=== PATIENT | female | born 1950 | race Two or more races ===

== ENCOUNTER 2016-11-10 10:15 | Outpatient (CLI) | payer MEDICARE, MEDICAID ==
[~2016-11-10 10:15] MED LIST: ALEN70TA45 PO; ALPR0.25 PO; ASCO500T9 PO; BENA20TA2 PO; CALC650T29 PO; CARV12.52 PO; DIPH25CA83 PO; FERR325T28 PO; FOLI1TAB16 PO; LEVO100T PO; METF500T4 PO; OMEP20CA10 PO; TRAM50TA2 PO
== END 2016-11-10 23:59 | disposition home health service (06) ==
LOC: WOU 10:15
PROVIDERS: ATTEND Podiatrist Foot & Ankle Surgery
DX: I87.2 Venous insufficiency (chronic) (peripheral) (principal); E11.52 Type 2 diabetes mellitus with diabetic peripheral angiopathy with gangrene; L97.322 Non-pressure chronic ulcer of left ankle with fat layer exposed; L97.829 Non-pressure chronic ulcer of other part of left lower leg with unspecified severity; L03.116 Cellulitis of left lower limb; B96.5 Pseudomonas (aeruginosa) (mallei) (pseudomallei) as the cause of diseases classified elsewhere; I70.222 Atherosclerosis of native arteries of extremities with rest pain, left leg; Z86.718 Personal history of other venous thrombosis and embolism; M21.172 Varus deformity, not elsewhere classified, left ankle; S82.892S Other fracture of left lower leg, sequela; X58.XXXS Exposure to other specified factors, sequela; Z85.810 Personal history of malignant neoplasm of tongue; Z92.21 Personal history of antineoplastic chemotherapy
CPT/HCPCS: 11042; 93925-TC; 93926-TC; A6402; A6452

== ENCOUNTER 2016-11-24 10:35 | Outpatient (CLI) | payer MEDICARE, MEDICAID | END 2016-11-24 23:59 | disposition home health service (06) | LOC: WOU 10:35 | PROVIDERS: ATTEND Podiatrist Foot & Ankle Surgery | DX: I87.2 Venous insufficiency (chronic) (peripheral) (principal); L97.322 Non-pressure chronic ulcer of left ankle with fat layer exposed; L97.821 Non-pressure chronic ulcer of other part of left lower leg limited to breakdown of skin; E66.9 Obesity, unspecified; Z68.32 Body mass index [BMI] 32.0-32.9, adult; Z86.718 Personal history of other venous thrombosis and embolism; Z85.810 Personal history of malignant neoplasm of tongue; Z92.21 Personal history of antineoplastic chemotherapy; Z92.3 Personal history of irradiation; M21.172 Varus deformity, not elsewhere classified, left ankle; I10 Essential (primary) hypertension | CPT/HCPCS: 11042; 11043; A6253; A6402; A6452 ==

== ENCOUNTER 2016-12-01 10:40 | Outpatient (CLI) | payer MEDICARE, MEDICAID | END 2016-12-01 23:59 | disposition home health service (06) | LOC: WOU 10:40 | PROVIDERS: ATTEND Podiatrist Foot & Ankle Surgery | DX: I87.2 Venous insufficiency (chronic) (peripheral) (principal); L97.322 Non-pressure chronic ulcer of left ankle with fat layer exposed; E66.9 Obesity, unspecified; Z68.32 Body mass index [BMI] 32.0-32.9, adult; Z86.718 Personal history of other venous thrombosis and embolism; Z85.810 Personal history of malignant neoplasm of tongue; Z92.21 Personal history of antineoplastic chemotherapy; Z92.3 Personal history of irradiation; M21.172 Varus deformity, not elsewhere classified, left ankle; E11.52 Type 2 diabetes mellitus with diabetic peripheral angiopathy with gangrene; I10 Essential (primary) hypertension | CPT/HCPCS: 11042; 11045; A6253; A6402; A6452 ==

== ENCOUNTER 2016-12-22 12:55 | Outpatient (CLI) | payer MEDICARE, MEDICAID | END 2016-12-22 23:59 | disposition home health service (06) | LOC: VASLAB 12:55 | PROVIDERS: ATTEND Surgery Vascular Surgery | DX: E11.51 Type 2 diabetes mellitus with diabetic peripheral angiopathy without gangrene (principal); I87.2 Venous insufficiency (chronic) (peripheral); I70.209 Unspecified atherosclerosis of native arteries of extremities, unspecified extremity; L97.321 Non-pressure chronic ulcer of left ankle limited to breakdown of skin; L97.821 Non-pressure chronic ulcer of other part of left lower leg limited to breakdown of skin | CPT/HCPCS: A6253; A6402; A6452; G0463 ==

== ENCOUNTER 2017-01-08 09:08 | Outpatient (CLI) | payer MEDICARE, MEDICAID | END 2017-01-08 23:59 | disposition home health service (06) | LOC: WOU 09:08 | PROVIDERS: ATTEND Podiatrist Foot & Ankle Surgery | DX: I87.2 Venous insufficiency (chronic) (peripheral) (principal); L97.322 Non-pressure chronic ulcer of left ankle with fat layer exposed; Z86.718 Personal history of other venous thrombosis and embolism; E11.9 Type 2 diabetes mellitus without complications; E66.9 Obesity, unspecified; Z68.32 Body mass index [BMI] 32.0-32.9, adult; M21.172 Varus deformity, not elsewhere classified, left ankle; S82.892S Other fracture of left lower leg, sequela; X58.XXXS Exposure to other specified factors, sequela; L84 Corns and callosities | CPT/HCPCS: 11042; 11045; A6253; A6402; A6452 ==

== ENCOUNTER 2017-02-02 14:14 | Outpatient (CLI) | payer MEDICARE, MEDICAID ==
[2017-02-02] MEDS ORDERED: ASPI-991 PO (16:26)
[2017-02-02] MEDS ORDERED: METF10002 PO (16:26)
[2017-02-02] MEDS ORDERED: PILO5TAB PO (16:26)
== END 2017-02-02 23:59 | disposition home health service (06) ==
LOC: WOU 14:14
PROVIDERS: ATTEND Podiatrist Foot & Ankle Surgery
DX: L03.116 Cellulitis of left lower limb (principal); I87.2 Venous insufficiency (chronic) (peripheral); E11.622 Type 2 diabetes mellitus with other skin ulcer; L97.321 Non-pressure chronic ulcer of left ankle limited to breakdown of skin; L97.821 Non-pressure chronic ulcer of other part of left lower leg limited to breakdown of skin; Z86.718 Personal history of other venous thrombosis and embolism; Z85.79 Personal history of other malignant neoplasms of lymphoid, hematopoietic and related tissues; Z92.21 Personal history of antineoplastic chemotherapy; Z92.3 Personal history of irradiation; M21.172 Varus deformity, not elsewhere classified, left ankle
CPT/HCPCS: A6402 ×2; G0463

== ENCOUNTER 2017-02-02 15:41 | Inpatient (IN) | payer MEDICARE, MEDICAID ==
[~2017-02-02] VITALS: Ht 165.1 cm; Wt 85.3 kg
--- NOTE | 2017-02-02 15:44 | NUR ---
PT SENT BY DR DUNHAM FROM [facility] TO BE ADMITTED FOR LLE CELLULITIS. PT ALERT OIRENTED MAORI SPEAKING. CAME IN VIA WHEELCHAIR. PATIENT CAN AMBULATE AND TRANSFER. PLACED ON MONITOR. VSS. AWAITING MD ORDER.
[2017-02-02] MEDS ORDERED: VANCOMYCIN 1 GM in IV D5W 250 ML IV ONE (16:00)
[2017-02-02] MEDS ORDERED: IV NS 0.9% 1,000 ML BAG IV ONE (16:00)
--- NOTE | 2017-02-02 16:00 | NUR ---
RAC #20 IV ACCESS PATENT AND BLOOD SAMPLE COLLECTED SENT TO LAB
[2017-02-02] MEDS ORDERED: IV SET PRIMARY PUMP SET 1 EA INFUS.SET MC ONE (16:02)
[2017-02-02] MEDS ORDERED: IV NS 0.9% 1,000 ML ONE (16:02)
[2017-02-02 16:05] LABS: BASOPHILS # (AUTO) 0.1 /CMM (0.0-0.2); BASOPHILS % (AUTO) 0.5 % (0.0-2.0); EOSINOPHILS # (AUTO) 0.2 /CMM (0.0-0.7); HEMATOCRIT 36 % (33-45); HEMOGLOBIN 11.8 g/dL (11.5-14.8); LYMPHOCYTES # (AUTO) 1.9 /CMM (0.8-4.8); LYMPHOCYTES % (AUTO) 17.5 % (20.0-44.0); MEAN CORPUSCULAR HEMOGLOBIN 28 PG (26.0-33.0); MEAN CORPUSCULAR HGB CONC 33 g/dl (31.0-36.0); MEAN CORPUSCULAR VOLUME 87 fL (82-100); MONOCYTES # (AUTO) 1.1 /CMM (0.1-1.30); MONOCYTES % (AUTO) 10.3 % (2.0-12.0); NEUTROPHILS # (AUTO) 7.7 /CMM (1.8-8.9); NEUTROPHILS % (AUTO) 69.7 % (43.0-81.0); PLATELET COUNT (AUTO) 371 /CMM (150-450); RDW COEFFICIENT OF VARIATION 12.6 (11.5-15.0); RED BLOOD CELL COUNT(AUTO) 4.18 MIL/uL (4.0-5.2)
--- NOTE | 2017-02-02 16:08 | NUR ---
CALLED NURSING SUP. FOR MS BED
--- NOTE | 2017-02-02 16:10 | NUR ---
WOUND CARE DONE ON LEFT LOWER EXT
[2017-02-02 16:19] LABS: INR 0.97 (0.87-1.13); PROTHROMBIN TIME 10.1 SECS (9.5-12.7)
[2017-02-02 16:20] LABS: CALCIUM, SERUM 8.6 mg/dL (8.5-10.1); CREATININE 0.7 mg/dL (0.6-1.3); POTASSIUM 4.1 mmol/L (3.5-5.1)
[2017-02-02 16:26] LABS: BILIRUBIN,DIRECT 0.1 mg/dL (0.0-0.2); BILIRUBIN,TOTAL 0.3 mg/dL (0.2-1.0); TOTAL PROTEIN, SERUM 8.1 g/dL (6.4-8.2)
[2017-02-02] MEDS ORDERED: PILO5TAB PO (16:26)
[2017-02-02] MEDS ORDERED: ASPI-991 PO (16:26)
[2017-02-02] MEDS ORDERED: METF10002 PO (16:26)
[2017-02-02 16:27] LABS: LACTIC ACID 1.2 mmol/L (0.4-2.0)
--- NOTE | 2017-02-02 17:04 | NUR ---
GAVE REPORT [facility] ROOM 113. DR GATICA SAW PT. PT TRANSFER TO [facility] VIA WHEELCHAIR.
[2017-02-02 17:15] VITALS: BP 128/49
[2017-02-02] MEDS ORDERED: Z GUARD REMEDY 2 OZ OINT TP PRN (17:30)
[2017-02-02] MEDS ORDERED: HYDROCODONE/APAP 5/325MG 1 EACH TABLET PO PRN (17:30)
[2017-02-02] MEDS ORDERED: ONDANSETRON HCL/PF 4 MG/2 ML VIAL IVP PRN (17:30)
[2017-02-02] MEDS ORDERED: PANTOPRAZOLE 40 MG TABLET.DR PO SCH (17:30)
[2017-02-02] MEDS ORDERED: MAG HYDROX/AL HYDROX/SIMETH 30 ML UDC PO PRN (17:30)
[2017-02-02] MEDS ORDERED: TRAMADOL HCL 50 MG TABLET PO PRN (17:30)
[2017-02-02] MEDS ORDERED: ACETAMINOPHEN 325 MG TABLET PO PRN (17:30)
[2017-02-02] MEDS ORDERED: IV SET PRIMARY 1 EA INFUS.SET MC ONE (17:45)
[2017-02-02] MEDS ORDERED: PILOCARPINE HCL 5 MG TABLET PO SCH (18:00)
[2017-02-02] MEDS ORDERED: FEE PK DOSING 1 MIN EA MC ONE (18:09)
[2017-02-02] MEDS: VANCOMYCIN 1 GM in IV D5W 250 ML IV SCH (18:55)
--- NOTE | 2017-02-02 18:57 | NUR ---
RN NOTES: Called Dr. Henao referred to MD, patient has a record allergy to Acetaminophen, interviewed patient and said she is having dizziness if Tylenol is taken, as per MD to continue ordering Tylenol and [place] (not a true allergic rxn), pharmacist Jason informed and will verify medication. Referred to Dr. Henao, patient is known DM ok to order Blood sugar check ACHS and with mild Insulin Sliding Scale.
[2017-02-02] MEDS ORDERED: CEFTRIAXONE 1 G in IV D5W 50 ML IV SCH (19:00)
[2017-02-02] MEDS: CARVEDILOL 12.5 MG TABLET PO SCH (19:07)
[2017-02-02] MEDS: BENAZEPRIL HCL 20 MG TABLET PO SCH (19:08)
[2017-02-02] MEDS: FERROUS SULFATE (325 MG) 325 MG/TAB TABLET PO SCH (19:08)
[2017-02-02] MEDS: FOLIC ACID 1 MG TABLET PO SCH (19:08)
[2017-02-02] MEDS: ASPIRIN EC 81 MG TABLET.DR PO SCH (19:08)
--- NOTE | 2017-02-02 19:17 | NUR ---
RN INITIAL NOTES: 1715hrs Received patient from ER per rufino in stable condition, accompanied by ER staff. Alert and oriented x3, amharic speaking, translated by ROD Corona, all queries answered by patient. ON RA saturating well at 97%. Able to make needs known, Call lights placed within reached, verbalized understanding to press call light when in need of any assistance. With IV PLUG over right Antecubital G20, with IV Vancomycin infusing well. Needs attended. Left lower extremities wound assessed and photographic photos taken placed in the chart. No SOB, no LOC, respirations are even and unlabored, no acute distress noted. Dr. Henao aware of admission. Patient able to ambulate with assistance FWW, Fall precaution observed, bed low and locked. To endorse to next shift for continuity of care.
[2017-02-02] MEDS ORDERED: DEXTROSE 50%-WATER 50 ML DISP.SYRIN IV PRN (19:30)
--- NOTE | 2017-02-02 20:08 | NUR ---
MS1/RN RECEIVE PATIENT SLEEPING, APPEAR COMFORTABLE, BREATHING EVEN AND UNLABORED, NO SIGNS OF DISTRESS NOTED, CALL LIGHT IN REACH. WILL MONITOR.
[2017-02-02] MEDS ORDERED: SECONDARY IV SET 1 EA INFUS.SET MC ONE (20:14)
[2017-02-02 20:53] VITALS: BP 136/56
[2017-02-02] MEDS ORDERED: ZOLPIDEM TARTRATE 5 MG TABLET PO PRN (22:00)
[2017-02-02] MEDS ORDERED: MAGNESIUM HYDROXIDE 30 ML UDC PO PRN (22:00)
[2017-02-02] MEDS: BLOOD SUGAR DIAGNOSTIC 1 EACH STRIP IN SCH (22:00)
--- NOTE | 2017-02-03 02:13 | NUR ---
MS1/RN PATIENT IS SLEEPING AROUSABLE, APPEAR COMFORTABLE, NO SIGNS OF DISTRESS NOTED, CALL LIGHT IN REACH. WILL CONTINUE TO MONITOR.
[2017-02-03 04:00] VITALS: BP 112/46
--- NOTE | 2017-02-03 06:43 | NUR ---
MS1/RN AWAKE, COMFORTABLE, NO CHANGE IN CONDITION. ALL NEEDS ATTENDED AT THIS TIME. WILL CONTINUE TO MONITOR.
[2017-02-03] MEDS: VANCOMYCIN 1 GM in IV D5W 250 ML IV SCH ×2 (07:03→18:24)
[2017-02-03 07:06] LABS: BASOPHILS % (AUTO) 0.2 % (0.0-2.0); EOSINOPHILS # (AUTO) 0.1 /CMM (0.0-0.7); EOSINOPHILS % (AUTO) 0.7 % (0.0-6.0); HEMATOCRIT 32 % (33-45); HEMOGLOBIN 10.8 g/dL (11.5-14.8); LYMPHOCYTES # (AUTO) 1.6 /CMM (0.8-4.8); MEAN CORPUSCULAR HEMOGLOBIN 30 PG (26.0-33.0); MEAN CORPUSCULAR HGB CONC 34 g/dl (31.0-36.0); MEAN CORPUSCULAR VOLUME 86 fL (82-100); MONOCYTES # (AUTO) 1.6 /CMM (0.1-1.30); MONOCYTES % (AUTO) 11.8 % (2.0-12.0); NEUTROPHILS # (AUTO) 10.2 /CMM (1.8-8.9); NEUTROPHILS % (AUTO) 75.3 % (43.0-81.0); PLATELET COUNT (AUTO) 316 /CMM (150-450); RDW COEFFICIENT OF VARIATION 13.6 (11.5-15.0); RED BLOOD CELL COUNT(AUTO) 3.65 MIL/uL (4.0-5.2); WHITE BLOOD COUNT (AUTO) 13.6 K/uL (4.3-11.0)
[2017-02-03] MEDS: IV NS 0.9% 1,000 ML IV PRN (07:07)
--- NOTE | 2017-02-03 07:20 | NUR ---
MS RN NOTES RECEIVED PATIENT AOX4 CHILEAN SPEAKING , ABLE TO MAKE NEEDS KNOWN , NOT IN ACUTE DISTRESS , DENIES SOB AND DISCOMFORT AT THIS TIME , SPO2 OF 95% VIA RA , LEFT LEG AND HEEL WOUND DRESSING C/D/I , IV OF R AC # 20 PATENT AND INTACT , IVF OF NS @ 75ML/HR INFUSING WELL , ALL NEEDS ATTENDED , BED ON LOW AND LOCKED POSITION , SIDE RAILS X2 ,CALL LIGHT WITHIN REACH , WILL CONTINUE TO MONITOR .
[2017-02-03 07:31] LABS: ALBUMIN 2.4 g/dL (3.4-5.0); BILIRUBIN,TOTAL 0.5 mg/dL (0.2-1.0); CALCIUM, SERUM 7.7 mg/dL (8.5-10.1); CREATININE 0.6 mg/dL (0.6-1.3); MAGNESIUM 1.7 mg/dL (1.8-2.4); PHOSPHORUS 2.9 mg/dL (2.5-4.9); POTASSIUM 3.8 mmol/L (3.5-5.1); TOTAL PROTEIN, SERUM 6.9 g/dL (6.4-8.2)
--- NOTE | 2017-02-03 07:44 | NUR ---
MS RN NOTES BS OF 160MG/DL , PT REFUSES COVERAGE OF INSULIN , EXPLAINED THE RISK AND BENEFITS OF INSULIN WITH IRISH TRANSLATION OF LJ , PT VERBALIZED UNDERSTANDING STILL REFUSES .
[2017-02-03 08:00] VITALS: BP_SYST 106; BP_SYST 110; BP_DIAS 41
[2017-02-03] MEDS: METFORMIN 500 MG TABLET PO SCH ×2 (08:07→16:51)
[2017-02-03] MEDS: FERROUS SULFATE (325 MG) 325 MG/TAB TABLET PO SCH ×2 (08:07→16:51)
[2017-02-03] MEDS: ASPIRIN EC 81 MG TABLET.DR PO SCH (08:07)
[2017-02-03] MEDS: PANTOPRAZOLE 40 MG TABLET.DR PO SCH (08:07)
[2017-02-03] MEDS: CALCIUM CARBONATE 500 MG TAB.CHEW PO SCH (08:07)
[2017-02-03] MEDS: FOLIC ACID 1 MG TABLET PO SCH (08:07)
[2017-02-03] MEDS: LEVOTHYROXINE SODIUM 100 MCG TABLET PO SCH (08:07)
[2017-02-03] MEDS: BENAZEPRIL HCL 20 MG TABLET PO SCH (08:08)
[2017-02-03] MEDS: CARVEDILOL 12.5 MG TABLET PO SCH ×2 (08:08→16:34)
[2017-02-03] MEDS: BLOOD SUGAR DIAGNOSTIC 1 EACH STRIP IN SCH ×4 (08:08→22:00)
[2017-02-03] MEDS ORDERED: PILOCARPINE HCL 5 MG TABLET PO SCH (09:00)
--- NOTE | 2017-02-03 10:00 | NUR ---
MS RN NOTES CONSENT FOR LEFT FOOT AND LEG STAGE DEBRIDEMENT OBTAINED , TRANSLATED BY LJ VELASCO , PT VERBALIZED UNDERSTANDING AND AGREED WITH THE PROCEDURE .
[2017-02-03] MEDS ORDERED: MORPHINE SULFATE INJ 2 MG/ML DISP.SYRIN IV ONE (10:30)
--- NOTE | 2017-02-03 10:34 | NUR ---
WOUND CARE CONSULT: PT PRESENTS WITH LEFT LEG ULCERS, PRESENT ON ADMISSION. RECOMMENDATIONS MADE FOR SKIN PROTECTION. DR DUNHAM IN TO SEE PT AND WOUND CARE ORDERS RECEIVED. WILL SEE PRN. PT DENIES NEED FOR BACK/SACRAL SKIN ASSESSMENT AND IS CONTINENT AND INDEPENDENT WITH BED MOBILITY PER NURSING STAFF. MD IN AGREEMENT WITH PLAN OF CARE. BRITTANI SCORE IS 19. Addendum: 02/03/17 at 1036 by JIMBO JETER WNDNU Amended: Links added.
--- NOTE | 2017-02-03 10:35 | NUR ---
MS RN NOTES DR CRANDALL AT BEDSIDE PERFORMING LEFT LEG AND FOOT DEBRIDEMENT , WOUND CULTURE OBTAINED , WILL CONTINUE TO MONITOR
[2017-02-03] MEDS ORDERED: SECONDARY IV SET 1 EA INFUS.SET MC ONE ×2 (11:01→14:53)
[2017-02-03] MEDS: Magnesium 1GM/D5W 100ML PREMIX 100 ML IV SCH ×2 (11:06→13:09)
[2017-02-03] MEDS: GENTAMICIN 0.1% OINT 15 GM TUBE TP SCH (11:06)
[2017-02-03] MEDS: INSULIN REGULAR, HUMAN 100 UNIT/ML 3 ML VIAL SQ PRN ×2 (11:22→16:53)
[2017-02-03 16:00] VITALS: BP_SYST 96; BP_DIAS 34; BP_DIAS 64
[2017-02-03] MEDS: LACTOBACILLUS RHAMNOSUS GG 1 EACH CAP.SPRINK PO SCH (16:51)
[2017-02-03] MEDS: CEFTRIAXONE 1 G in IV D5W 50 ML IV SCH (17:00)
--- NOTE | 2017-02-03 18:34 | NUR ---
MS RN NOTES FOLLOWED UP IF SOMEBODY CAM BRING SALEGEN 5MG HOME MEDICATION , PER PT SHE DOESNT TAKE IT MUCH , SHE IS JUST TAKING IT IF SHE'S HAVING LOT OF SECRETIONS , CALLED [facility] PHARMACIST AWARE .
--- NOTE | 2017-02-03 18:54 | NUR ---
MS RN NOTES PATIENT STABLE AT THIS TIME , ABLE TO MAKE NEEDS KNOWN , NOT IN ACUTE DISTRESS , DENIES SOB AND DISCOMFORT AT THIS TIME , SPO2 OF 96% VIA RA , LEFT LEG AND HEEL WOUND DRESSING C/D/I , IV OF R AC # 20 PATENT AND INTACT , IVF OF NS @ 75ML/HR INFUSING WELL , ALL NEEDS ATTENDED , BED ON LOW AND LOCKED POSITION , SIDE RAILS X2 ,CALL LIGHT WITHIN REACH , REPORT GIVEN TO PM NURSE FOR CONTINUITY OF CARE
[2017-02-03 20:00] VITALS: BP_SYST 102; BP_DIAS 44; BP_DIAS 64
--- NOTE | 2017-02-03 20:00 | NUR ---
MS RN NOTES RECEIVED PTS ON BED AWAKE ALERT AND RESPONSIVE ABLE TO MAKE NEEDS KNOWN , PTS USES COMMODE , V/S STABLE AFEBRILE . PTS IS CANADIAN SPEAKING . ON IVF OF NS AT 75CC/HR TOLERATED WELL .ALL DUE MEDS GIVEN ORDERED. ALL NEEDS ATTENDED TO CALL LIGHT WITHIN REACH, KEPT PTS CLEAN DRY AND COMFORTABLE, WILL CONTINUE TO MONITOR PTS.
[2017-02-04] MEDS: INSULIN REGULAR, HUMAN 100 UNIT/ML 3 ML VIAL SQ PRN ×3 (00:25→21:33)
[2017-02-04] MEDS: IV NS 0.9% 1,000 ML IV PRN ×2 (03:17→20:43)
[2017-02-04 04:00] VITALS: BP 113/46
[2017-02-04] MEDS: BLOOD SUGAR DIAGNOSTIC 1 EACH STRIP IN SCH ×4 (06:45→21:35)
[2017-02-04] MEDS: VANCOMYCIN 1 GM in IV D5W 250 ML IV SCH (06:51)
[2017-02-04 07:06] LABS: BASOPHILS % (AUTO) 0.4 % (0.0-2.0); EOSINOPHILS # (AUTO) 0.3 /CMM (0.0-0.7); EOSINOPHILS % (AUTO) 3.4 % (0.0-6.0); HEMATOCRIT 30 % (33-45); HEMOGLOBIN 9.8 g/dL (11.5-14.8); LYMPHOCYTES # (AUTO) 2.1 /CMM (0.8-4.8); LYMPHOCYTES % (AUTO) 21.6 % (20.0-44.0); MEAN CORPUSCULAR HEMOGLOBIN 29 PG (26.0-33.0); MEAN CORPUSCULAR HGB CONC 33 g/dl (31.0-36.0); MEAN CORPUSCULAR VOLUME 87 fL (82-100); MONOCYTES # (AUTO) 1.1 /CMM (0.1-1.30); MONOCYTES % (AUTO) 11.7 % (2.0-12.0); NEUTROPHILS # (AUTO) 6.1 /CMM (1.8-8.9); NEUTROPHILS % (AUTO) 62.9 % (43.0-81.0); PLATELET COUNT (AUTO) 294 /CMM (150-450); RDW COEFFICIENT OF VARIATION 13.6 (11.5-15.0); WHITE BLOOD COUNT (AUTO) 9.6 K/uL (4.3-11.0)
--- NOTE | 2017-02-04 07:20 | NUR ---
MS RN NOTES BLOOD SUGAR FOR 730AM IS 93 - NO COVERAGE GIVEN PER SLIDING SCALE, PTS IS STABLE AFEBRILE NO SOB NO DISTRESS NOTED , ENDORSED TO TIM STANTON DAY SHIFT FOR CONTINUITY OF CARE.
[2017-02-04 07:48] LABS: CALCIUM, SERUM 7.4 mg/dL (8.5-10.1); CREATININE 0.5 mg/dL (0.6-1.3); POTASSIUM 3.6 mmol/L (3.5-5.1)
[2017-02-04 08:00] VITALS: BP 122/37
[2017-02-04] MEDS: METFORMIN 500 MG TABLET PO SCH ×3 (08:53→17:52)
[2017-02-04] MEDS: LEVOTHYROXINE SODIUM 100 MCG TABLET PO SCH (08:54)
[2017-02-04] MEDS: FOLIC ACID 1 MG TABLET PO SCH (08:54)
[2017-02-04] MEDS: ASPIRIN EC 81 MG TABLET.DR PO SCH (08:54)
[2017-02-04] MEDS: PANTOPRAZOLE 40 MG TABLET.DR PO SCH (08:54)
[2017-02-04] MEDS: FERROUS SULFATE (325 MG) 325 MG/TAB TABLET PO SCH ×2 (08:54→17:52)
[2017-02-04] MEDS: BENAZEPRIL HCL 20 MG TABLET PO SCH (08:54)
[2017-02-04] MEDS: LACTOBACILLUS RHAMNOSUS GG 1 EACH CAP.SPRINK PO SCH ×2 (08:54→17:52)
[2017-02-04] MEDS: CALCIUM CARBONATE 500 MG TAB.CHEW PO SCH (08:54)
[2017-02-04] MEDS: CARVEDILOL 12.5 MG TABLET PO SCH ×2 (08:56→17:52)
[2017-02-04] MEDS: GENTAMICIN 0.1% OINT 15 GM TUBE TP SCH (08:57)
[2017-02-04] MEDS: VANCOMYCIN 0.75 GM in IV D5W 250 ML IV SCH (14:27)
[2017-02-04 16:00] VITALS: BP 128/34
[2017-02-04] MEDS: CEFTRIAXONE 1 G in IV D5W 50 ML IV SCH (17:53)
[2017-02-04 20:00] VITALS: BP 142/58
--- NOTE | 2017-02-04 20:00 | NUR ---
MS RN NOTES RECEIVED PTS ON BED AWAKE ALERT AND RESPONSIVE , TRINIDADIAN SPEAKING , NO SOB NO DISTRESS NOTED , DENIES PAIN AT THIS TIME. ALL DUE MEDS GIVEN ORDERED , ALL NEEDS ATTENDED TOO CALL LIGHT WITHIN REACH, KEPT PTS CLEAN DRY AND COMFORTABLE .
--- NOTE | 2017-02-04 22:00 | NUR ---
MS RN NOTES BLOOD SUGAR FOR 10PM IS 125= NO COVERAGE GIVEN PER SLIDING SCALE.WILL CONTINUE TO MONITOR PTS.PTS IS COMFORTABLE IN BED SLEEPING.
[2017-02-05] MEDS: VANCOMYCIN 0.75 GM in IV D5W 250 ML IV SCH ×3 (02:32→17:37)
[2017-02-05 04:00] VITALS: BP 134/65
[2017-02-05] MEDS: BLOOD SUGAR DIAGNOSTIC 1 EACH STRIP IN SCH ×4 (06:25→21:18)
[2017-02-05] MEDS: INSULIN REGULAR, HUMAN 100 UNIT/ML 3 ML VIAL SQ PRN (06:26)
[2017-02-05 07:16] LABS: CALCIUM, SERUM 7.9 mg/dL (8.5-10.1); CREATININE 0.5 mg/dL (0.6-1.3); POTASSIUM 3.7 mmol/L (3.5-5.1)
--- NOTE | 2017-02-05 07:30 | NUR ---
RN NOTES RECEIVED PT RESTING ON BED AWAKE ALERT AND RESPONSIVE ABLE TO MAKE NEEDS KNOWN, SWISS SPEAKING. DENIES PAIN AT THIS TIME, DRESSING ON LOWER EXTREMITY DRY AND INTACT. PT USES COMMODE AT BEDSIDE. ON IVF OF NS AT 75CC/HR INFUSING ON R AC TOLERATED WELL. SAFETY MAINTAINED, ALL NEEDS ATTENDED TO CALL LIGHT WITHIN REACH, WILL CONTINUE TO MONITOR.
[2017-02-05 08:00] VITALS: BP 140/50
[2017-02-05] MEDS: METFORMIN 500 MG TABLET PO SCH ×2 (08:58→17:17)
[2017-02-05] MEDS: FERROUS SULFATE (325 MG) 325 MG/TAB TABLET PO SCH ×2 (08:58→17:17)
[2017-02-05] MEDS: LACTOBACILLUS RHAMNOSUS GG 1 EACH CAP.SPRINK PO SCH ×2 (08:58→17:17)
[2017-02-05] MEDS: CALCIUM CARBONATE 500 MG TAB.CHEW PO SCH (08:58)
[2017-02-05] MEDS: LEVOTHYROXINE SODIUM 100 MCG TABLET PO SCH (08:59)
[2017-02-05] MEDS: ASPIRIN EC 81 MG TABLET.DR PO SCH (08:59)
[2017-02-05] MEDS: PANTOPRAZOLE 40 MG TABLET.DR PO SCH (08:59)
[2017-02-05] MEDS: FOLIC ACID 1 MG TABLET PO SCH (08:59)
[2017-02-05] MEDS: CARVEDILOL 12.5 MG TABLET PO SCH ×2 (08:59→17:18)
[2017-02-05] MEDS: BENAZEPRIL HCL 20 MG TABLET PO SCH (08:59)
[2017-02-05] MEDS: GENTAMICIN 0.1% OINT 15 GM TUBE TP SCH (09:00)
[2017-02-05] MEDS: IV NS 0.9% 1,000 ML IV PRN (09:23)
--- NOTE | 2017-02-05 12:32 | NUR ---
RN NOTES BS 134MG/DL, PT REFUSED INSULIN COVERAGE. RISKS AND BENEFITS EXPLAINED. PT STILL REFUSED.
[2017-02-05 16:00] VITALS: BP 124/44
[2017-02-05] MEDS: CEFTRIAXONE 1 G in IV D5W 50 ML IV SCH (17:18)
[2017-02-05] MEDS ORDERED: ALENDRONATE 70 MG TABLET PO SCH (17:30)
[2017-02-05] MEDS: LEVOFLOXACIN (500MG) 500 MG TABLET PO SCH (19:51)
[2017-02-05] MEDS: CEFTAZIDIME 1 G in IV D5W 50 ML IV SCH (19:51)
[2017-02-05 20:00] VITALS: BP 143/52
[2017-02-05 20:02] VITALS: BP 143/52
--- NOTE | 2017-02-05 22:09 | NUR ---
RN:MS: PT REFUSED INSULIN ADMIN FOR HS. PT GIVEN RISKS AND BENEFITS OF INSULIN, PT STILL REFUSED.
[2017-02-06] MEDS: CEFTAZIDIME 1 G in IV D5W 50 ML IV SCH ×3 (03:04→17:10)
[2017-02-06 04:00] VITALS: BP 149/62
[2017-02-06] MEDS: BLOOD SUGAR DIAGNOSTIC 1 EACH STRIP IN SCH ×4 (06:27→23:01)
[2017-02-06 07:06] LABS: CALCIUM, SERUM 8.1 mg/dL (8.5-10.1); CREATININE 0.5 mg/dL (0.6-1.3); POTASSIUM 3.7 mmol/L (3.5-5.1)
--- NOTE | 2017-02-06 07:15 | NUR ---
RN MS INITIAL NOTE RECEIVED PT FROM PM NURSE, PT RESTING IN BED, A&O X3 ESTONIAN SPEAKING, AWAKE ORIENTED, ON RA SAT ABOVE 97%, RT HAND RUNNING IV NS @ 75 ML/HR, NO INFILTRATION, ALL NEEDS MET, ALL SAFETY MEASURES INITIATED, SIDE RAILS X2, BED LOW AND LOCKED, CALL LIGHT WITHIN REACH, WILL CONTINUE TO MONITOR.
[2017-02-06 08:00] VITALS: BP 148/70
[2017-02-06] MEDS: ASPIRIN EC 81 MG TABLET.DR PO SCH (08:09)
[2017-02-06] MEDS: CALCIUM CARBONATE 500 MG TAB.CHEW PO SCH (08:09)
[2017-02-06] MEDS: FERROUS SULFATE (325 MG) 325 MG/TAB TABLET PO SCH ×2 (08:09→17:07)
[2017-02-06] MEDS: LACTOBACILLUS RHAMNOSUS GG 1 EACH CAP.SPRINK PO SCH ×2 (08:10→17:08)
[2017-02-06] MEDS: BENAZEPRIL HCL 20 MG TABLET PO SCH (08:10)
[2017-02-06] MEDS: PANTOPRAZOLE 40 MG TABLET.DR PO SCH (08:10)
[2017-02-06] MEDS: METFORMIN 500 MG TABLET PO SCH ×2 (08:10→17:07)
[2017-02-06] MEDS: FOLIC ACID 1 MG TABLET PO SCH (08:10)
[2017-02-06] MEDS: LEVOTHYROXINE SODIUM 100 MCG TABLET PO SCH (08:10)
[2017-02-06] MEDS: CARVEDILOL 12.5 MG TABLET PO SCH ×2 (08:11→17:08)
[2017-02-06] MEDS: GENTAMICIN 0.1% OINT 15 GM TUBE TP SCH (08:12)
[2017-02-06] MEDS ORDERED: GENTAMICIN 0.1% OINT 15 GM TUBE TP SCH (09:00)
[2017-02-06] MEDS: IV NS 0.9% 1,000 ML IV PRN (12:00)
[2017-02-06 16:00] VITALS: BP 135/70
[2017-02-06] MEDS: LEVOFLOXACIN (500MG) 500 MG TABLET PO SCH (17:10)
--- NOTE | 2017-02-06 18:38 | NUR ---
RN MS TARANGO NOTES PT STABLE WITH NO ACUTE CHANGES, BED BATH PROVIDED, WILL ENDORSE TO PM NURSE.
--- NOTE | 2017-02-06 19:30 | NUR ---
MS RN INITIAL NOTE RECEIVED PT SITTING AT BEDSIDE. A/O X3 YAKUT SPEAKING AND ABLE TO MAKE NEEDS KNOWN. ON ROOM AIR AND SATING WELL. IV R HAND CLEAN AND INTACT WITH FLUIDS RUNNING. ALL SAFETY MEASURES IN PLACE. CALL LIGHT WITHIN EASY REACH AT ALL TIMES. WILL CONTINUE TO MONITOR.
[2017-02-06 20:00] VITALS: BP 147/74
[2017-02-07] MEDS ORDERED: IV SET PRIMARY PUMP SET 1 EA INFUS.SET MC ONE (01:47)
[2017-02-07] MEDS ORDERED: SECONDARY IV SET 1 EA INFUS.SET MC ONE (01:47)
[2017-02-07] MEDS: CEFTAZIDIME 1 G in IV D5W 50 ML IV SCH ×3 (02:02→18:05)
[2017-02-07] MEDS: IV NS 0.9% 1,000 ML IV PRN ×2 (02:02→17:11)
--- NOTE | 2017-02-07 06:30 | NUR ---
MS RN CLOSING NOTE PT REMAINED STABLE DURING SHIFT. WOUND TREATMENT DONE. ALL SAFETY MEASURES IN PLACE. CALL LIGHT WITHIN EASY REACH AT ALL TIMES. WILL ENDORSE TO NEXT SHIFT FOR SUZIE
[2017-02-07] MEDS: BLOOD SUGAR DIAGNOSTIC 1 EACH STRIP IN SCH ×4 (06:44→21:41)
[2017-02-07] MEDS: PANTOPRAZOLE 40 MG TABLET.DR PO SCH (06:44)
[2017-02-07] MEDS: LEVOTHYROXINE SODIUM 100 MCG TABLET PO SCH (06:44)
--- NOTE | 2017-02-07 07:10 | NUR ---
MS RN NOTES RECEIVED PATIENT IN BED AWAKE, A/O X3. LEFT LEG DRESSING IN PLACE, APPEARS COMFORTABLE IN BED, NO C/O PAIN AT THIS TIME. IV RIGHT HAND G22 PATENT AND INTACT, IV NS INFUSING AT 75ML/HR. CALL LIGHT WITHIN REACH. WILL CONT TO MONITOR.
[2017-02-07 07:28] LABS: CALCIUM, SERUM 8.2 mg/dL (8.5-10.1); CREATININE 0.6 mg/dL (0.6-1.3); POTASSIUM 3.8 mmol/L (3.5-5.1)
[2017-02-07 08:00] VITALS: BP 164/94
[2017-02-07] MEDS: BENAZEPRIL HCL 20 MG TABLET PO SCH (08:49)
[2017-02-07] MEDS: LACTOBACILLUS RHAMNOSUS GG 1 EACH CAP.SPRINK PO SCH ×2 (08:49→17:09)
[2017-02-07] MEDS: FOLIC ACID 1 MG TABLET PO SCH (08:50)
[2017-02-07] MEDS: METFORMIN 500 MG TABLET PO SCH ×2 (08:50→17:09)
[2017-02-07] MEDS: CARVEDILOL 12.5 MG TABLET PO SCH ×2 (08:50→17:09)
[2017-02-07] MEDS: FERROUS SULFATE (325 MG) 325 MG/TAB TABLET PO SCH ×2 (08:50→17:09)
[2017-02-07] MEDS: CALCIUM CARBONATE 500 MG TAB.CHEW PO SCH (08:50)
[2017-02-07] MEDS: ASPIRIN EC 81 MG TABLET.DR PO SCH (08:50)
[2017-02-07] MEDS: DAKINS QUARTER STRENGTH (0.125%) 480 ML BOTTLE TOP SCH (09:00)
[2017-02-07] MEDS: GENTAMICIN 0.1% OINT 15 GM TUBE TP SCH (10:23)
--- NOTE | 2017-02-07 11:22 | NUR ---
ERON DINERO. NOT AVAILABLE AT THIS TIME. CALLED PHARMACY SPOKE TO SEDA.
[2017-02-07] MEDS: INSULIN REGULAR, HUMAN 100 UNIT/ML 3 ML VIAL SQ PRN ×2 (12:04→17:21)
--- NOTE | 2017-02-07 12:07 | NUR ---
BS 107MG/DL. NO INSULIN COVERAGE.
[2017-02-07 16:00] VITALS: BP 147/68
--- NOTE | 2017-02-07 17:22 | NUR ---
BS 79MG/DL. NO INSULIN GIVEN PER COVERAGE.
[2017-02-07] MEDS: LEVOFLOXACIN (500MG) 500 MG TABLET PO SCH (18:09)
--- NOTE | 2017-02-07 18:39 | NUR ---
MS RN CLOSING NOTES PATIENT IN BED, NOT IN DISTRESS. LEFT LEG WOUND DRESSING CHANGED. BLOOD SUGAR MONITORED. ON ANTIBIOTIC WITH NO ADVERSE SIDE EFFECT, AFEBRILE. PATIENT HAD BOWEL MOVEMENT TODAY, MOD AMT. NO C/O CONSTIPATION. MADE COMFORTABLE IN BED, LLE ELEVATED WITH PILLOWS. NO C/O PAIN OR ANY DISCOMFORT. CALL LIGHT WITHIN REACH. PER DR. GATICA FOR DC PLANNING IN AM IF CLEARED BY PODIATRY. WILL ENDORSE TO PERSONAL DEVELOPMENT EDUCATOR RN FOR CONTINUITY OF CARE.
--- NOTE | 2017-02-07 19:30 | NUR ---
MS RN INITIAL NOTE RECEIVED PT IN BED AWAKE AND ALERT. A/O X3 AND GIBRALTARIAN SPEAKING. ABLE TO MAKE NEEDS KNOWN.ON ROOM AIR. IV R HAND CLEAN AND INTACT WITH FLUIDS RUNNING. ALL SAFETY MEASURES IN PLACE. CALL LIGHT WITHIN REACH AT ALL TIMES. WILL CONTINUE TO MONITOR.
[2017-02-07 20:00] VITALS: BP_SYST 160; BP_SYST 166; BP_DIAS 62
[2017-02-08] MEDS: CEFTAZIDIME 1 G in IV D5W 50 ML IV SCH ×2 (03:12→11:55)
[2017-02-08 04:00] VITALS: BP 175/65
--- NOTE | 2017-02-08 06:00 | NUR ---
MS RN NOTE PT BLOOD PRESSURE 175/65. RECHECKED IN 20 MINS SBP 195. SPOKE WITH EMERGENCY DEPARTMENT DIRECTOR DR MONTANA. WITH NEW ORDER TO GIVE COREG 12.5MG DUE AT 9AM EARLIER FOR HIGH BLOOD PRESSURE. NEW ORDER FOR HYDRALAZINE 25MG PRN PO WITH SBP >160. PT ALSO C/O CHEST PAIN. WITH NEW ORDER FOR STAT EKG AND TROPONIN. ALL DUE MEDS GIVEN ORDERED AND WELL TOLERATED. WILL ENDORSE TO NEXT SHIFT FOR SUZIE.
[2017-02-08] MEDS ORDERED: hydrALAZINE HCL 25 MG TABLET PO PRN (06:30)
[2017-02-08] MEDS: BLOOD SUGAR DIAGNOSTIC 1 EACH STRIP IN SCH ×2 (06:41→11:55)
[2017-02-08] MEDS: PANTOPRAZOLE 40 MG TABLET.DR PO SCH (06:41)
[2017-02-08] MEDS: LEVOTHYROXINE SODIUM 100 MCG TABLET PO SCH (06:41)
[2017-02-08] MEDS: CARVEDILOL 12.5 MG TABLET PO SCH ×2 (06:41→16:44)
[2017-02-08] MEDS: IV NS 0.9% 1,000 ML IV PRN (07:03)
[2017-02-08 07:20] LABS: CALCIUM, SERUM 8.6 mg/dL (8.5-10.1); CREATININE 0.6 mg/dL (0.6-1.3); POTASSIUM 3.8 mmol/L (3.5-5.1)
--- NOTE | 2017-02-08 07:30 | NUR ---
PT RECEIVED SITTING COMFORTABLY IN CHAIR. NO S/S OR C/O PAIN OR DISTRESS NOTED. SIDE RAILS UP X2, CALL LIGHT LEFT WITHIN REACH. WILL CONTINUE PLAN OF CARE. Addendum: 02/08/17 at 0953 by AJAY ASENCIO RN PT RECEIVED RESTING COMFORTABLY IN BED. NO S/S OR C/O PAIN OR DISTRESS NOTED. SIDE RAILS UP X2, CALL LIGHT LEFT WITHIN REACH. WILL CONTINUE PLAN OF CARE.
[2017-02-08 08:00] VITALS: BP 148/61
[2017-02-08] MEDS: CALCIUM CARBONATE 500 MG TAB.CHEW PO SCH (09:02)
[2017-02-08] MEDS: ASPIRIN EC 81 MG TABLET.DR PO SCH (09:02)
[2017-02-08] MEDS: METFORMIN 500 MG TABLET PO SCH ×2 (09:02→16:46)
[2017-02-08] MEDS: FERROUS SULFATE (325 MG) 325 MG/TAB TABLET PO SCH ×2 (09:02→16:43)
[2017-02-08] MEDS: BENAZEPRIL HCL 20 MG TABLET PO SCH (09:02)
[2017-02-08] MEDS: FOLIC ACID 1 MG TABLET PO SCH (09:02)
[2017-02-08] MEDS: LACTOBACILLUS RHAMNOSUS GG 1 EACH CAP.SPRINK PO SCH ×2 (09:02→16:43)
[2017-02-08] MEDS: DAKINS QUARTER STRENGTH (0.125%) 480 ML BOTTLE TOP SCH (09:05)
[2017-02-08] MEDS: GENTAMICIN 0.1% OINT 15 GM TUBE TP SCH (09:06)
[2017-02-08 16:44] VITALS: BP 165/66
--- NOTE | 2017-02-08 17:00 | NUR ---
DISCHARGE INSTRUCTIONS GIVEN ORDERED. ENCOURAGED TO FOLLOW UP WITH PMD INSTRUCTED. ALL QUESTIONS AND CONCERNS ADDRESSED. PATIENT VERBALIZED UNDERSTANDING. MEDICATION RECONCILIATION FORM COMPLETED. COPY GIVEN TO PATIENT. IV REMOVED WITH CATHETER INTACT, PRESSURE DRESSING APPLIED. PATIENT TAKEN TO VEHICLE VIA WHEELCHAIR WITH ALL PERSONAL BELONGINGS, ACCOMPANIED BY STAFF AND FAMILY MEMBER. NO DISTRESS NOTED AT TIME OF DEPARTURE.
== END 2017-02-08 17:47 | disposition home or self-care (01) | DRG 264 ==
LOC: ER 15:43 → MEDSG1 17:00
PROVIDERS: ADMIT Internal Medicine; ATTEND Internal Medicine
PROC: 0JBP0ZZ Excision of Left Lower Leg Subcutaneous Tissue and Fascia, Open Approach (ICD-10-PCS; principal; 2017-02-06)
DX: I87.8 Other specified disorders of veins (principal); E87.1 Hypo-osmolality and hyponatremia; L97.429 Non-pressure chronic ulcer of left heel and midfoot with unspecified severity; L03.116 Cellulitis of left lower limb; E11.621 Type 2 diabetes mellitus with foot ulcer; E03.9 Hypothyroidism, unspecified; E78.5 Hyperlipidemia, unspecified; I10 Essential (primary) hypertension; E11.40 Type 2 diabetes mellitus with diabetic neuropathy, unspecified; E66.9 Obesity, unspecified; B96.5 Pseudomonas (aeruginosa) (mallei) (pseudomallei) as the cause of diseases classified elsewhere
CPT/HCPCS: 36415; 80048-TC; 80053-TC; 80061-TC; 80076-TC; 80202-TC; 82962-TC; 83605-TC; 83735-TC; 84100-TC; 84484-TC; 85025-TC; 85730-TC; 87040-TC; 87070-TC; 87081-TC; 87186-TC; A6253; A6402; A6403; J0696; J0713; J1815; J3370; J3475; J7030; J7060; Z7610

== ENCOUNTER 2017-02-09 10:33 | Outpatient (CLI) | payer MEDICARE, MEDICAID ==
[~2017-02-09 10:33] MED LIST changes: -ALPR0.25 PO; -ASCO500T9 PO; +ASPI-991 PO; -DIPH25CA83 PO; +METF10002 PO; -METF500T4 PO; +PILO5TAB PO
== END 2017-02-09 23:59 | disposition home health service (06) ==
LOC: WOU 10:33
PROVIDERS: ATTEND Podiatrist Foot & Ankle Surgery
DX: I87.2 Venous insufficiency (chronic) (peripheral) (principal); L97.321 Non-pressure chronic ulcer of left ankle limited to breakdown of skin; L97.221 Non-pressure chronic ulcer of left calf limited to breakdown of skin; M21.172 Varus deformity, not elsewhere classified, left ankle; E11.9 Type 2 diabetes mellitus without complications
CPT/HCPCS: 11042; 11045; A6209; A6253; A6402 ×2

== ENCOUNTER 2017-02-12 09:33 | Outpatient (CLI) | payer MEDICARE, MEDICAID | END 2017-02-12 23:59 | disposition home or self-care (01) | LOC: WOU 09:33 | PROVIDERS: ATTEND Podiatrist Foot & Ankle Surgery | DX: I87.2 Venous insufficiency (chronic) (peripheral) (principal); E11.622 Type 2 diabetes mellitus with other skin ulcer; M21.172 Varus deformity, not elsewhere classified, left ankle; L03.116 Cellulitis of left lower limb; Z86.718 Personal history of other venous thrombosis and embolism; Z87.81 Personal history of (healed) traumatic fracture; L97.221 Non-pressure chronic ulcer of left calf limited to breakdown of skin; L97.321 Non-pressure chronic ulcer of left ankle limited to breakdown of skin | CPT/HCPCS: 11042; 11045; A6253; A6402 ==

== ENCOUNTER 2017-02-26 09:34 | Outpatient (CLI) | payer MEDICARE, MEDICAID | END 2017-02-26 23:59 | disposition home health service (06) | LOC: WOU 09:34 | PROVIDERS: ATTEND Podiatrist Foot & Ankle Surgery | DX: I83.223 Varicose veins of left lower extremity with both ulcer of ankle and inflammation (principal); L97.321 Non-pressure chronic ulcer of left ankle limited to breakdown of skin; I83.228 Varicose veins of left lower extremity with both ulcer of other part of lower extremity and inflammation; L97.821 Non-pressure chronic ulcer of other part of left lower leg limited to breakdown of skin; L03.116 Cellulitis of left lower limb; Z86.718 Personal history of other venous thrombosis and embolism; E66.9 Obesity, unspecified; Z68.32 Body mass index [BMI] 32.0-32.9, adult; Z71.3 Dietary counseling and surveillance; M21.172 Varus deformity, not elsewhere classified, left ankle; Z85.810 Personal history of malignant neoplasm of tongue; Z92.21 Personal history of antineoplastic chemotherapy; Z92.3 Personal history of irradiation; Z85.79 Personal history of other malignant neoplasms of lymphoid, hematopoietic and related tissues; E11.9 Type 2 diabetes mellitus without complications | CPT/HCPCS: 11042; 11045 ×2; A6253; A6402 ==

== ENCOUNTER 2017-03-12 14:18 | Outpatient (CLI) | payer MEDICARE, MEDICAID | END 2017-03-12 23:59 | disposition home health service (06) | LOC: WOU 14:18 | PROVIDERS: ATTEND Podiatrist Foot & Ankle Surgery | DX: I83.223 Varicose veins of left lower extremity with both ulcer of ankle and inflammation (principal); L97.322 Non-pressure chronic ulcer of left ankle with fat layer exposed; Z86.718 Personal history of other venous thrombosis and embolism; E66.9 Obesity, unspecified; Z68.32 Body mass index [BMI] 32.0-32.9, adult; Z71.3 Dietary counseling and surveillance; M21.172 Varus deformity, not elsewhere classified, left ankle; Z85.810 Personal history of malignant neoplasm of tongue; Z92.21 Personal history of antineoplastic chemotherapy; Z92.3 Personal history of irradiation; Z85.79 Personal history of other malignant neoplasms of lymphoid, hematopoietic and related tissues; E11.42 Type 2 diabetes mellitus with diabetic polyneuropathy; I83.899 Varicose veins of unspecified lower extremity with other complications | CPT/HCPCS: 11042; 11045; A6209; A6253; A6402 ==

== ENCOUNTER 2017-03-26 10:05 | Outpatient (CLI) | payer MEDICARE, MEDICAID | END 2017-03-26 23:59 | disposition home or self-care (01) | LOC: WOU 10:05 | PROVIDERS: ATTEND Podiatrist Foot & Ankle Surgery | DX: I83.023 Varicose veins of left lower extremity with ulcer of ankle (principal); L97.329 Non-pressure chronic ulcer of left ankle with unspecified severity; I83.028 Varicose veins of left lower extremity with ulcer other part of lower leg; L97.829 Non-pressure chronic ulcer of other part of left lower leg with unspecified severity; I83.893 Varicose veins of bilateral lower extremities with other complications; E11.42 Type 2 diabetes mellitus with diabetic polyneuropathy; Z86.718 Personal history of other venous thrombosis and embolism; Z79.52 Long term (current) use of systemic steroids; S82.892S Other fracture of left lower leg, sequela; X58.XXXS Exposure to other specified factors, sequela; M21.172 Varus deformity, not elsewhere classified, left ankle | CPT/HCPCS: A6209; A6253; A6402; G0463 ==

== ENCOUNTER 2017-03-30 14:05 | Outpatient (CLI) | payer MEDICARE, MEDICAID | END 2017-03-30 23:59 | disposition home or self-care (01) | LOC: WOU 14:05 | PROVIDERS: ATTEND Podiatrist Foot & Ankle Surgery | DX: I83.222 Varicose veins of left lower extremity with both ulcer of calf and inflammation (principal); L97.221 Non-pressure chronic ulcer of left calf limited to breakdown of skin; I83.223 Varicose veins of left lower extremity with both ulcer of ankle and inflammation; L97.321 Non-pressure chronic ulcer of left ankle limited to breakdown of skin; Z79.52 Long term (current) use of systemic steroids; Z86.718 Personal history of other venous thrombosis and embolism; E66.9 Obesity, unspecified; Z68.32 Body mass index [BMI] 32.0-32.9, adult; E11.42 Type 2 diabetes mellitus with diabetic polyneuropathy; M21.542 Acquired clubfoot, left foot; S82.892S Other fracture of left lower leg, sequela; Z88.6 Allergy status to analgesic agent | CPT/HCPCS: 11042; 11045; 87070; 87075; 87077; 87186 ×3; A6209 ×2; A6253 ×2; A6402 ==

== ENCOUNTER 2017-04-06 11:50 | Outpatient (CLI) | payer MEDICARE, MEDICAID | END 2017-04-06 23:59 | disposition home or self-care (01) | LOC: WOU 11:50 | PROVIDERS: ATTEND Podiatrist Foot & Ankle Surgery | DX: I83.223 Varicose veins of left lower extremity with both ulcer of ankle and inflammation (principal); L97.322 Non-pressure chronic ulcer of left ankle with fat layer exposed; B95.2 Enterococcus as the cause of diseases classified elsewhere; B96.1 Klebsiella pneumoniae [K. pneumoniae] as the cause of diseases classified elsewhere; B96.5 Pseudomonas (aeruginosa) (mallei) (pseudomallei) as the cause of diseases classified elsewhere; L97.829 Non-pressure chronic ulcer of other part of left lower leg with unspecified severity; L03.116 Cellulitis of left lower limb; M21.542 Acquired clubfoot, left foot; Z86.718 Personal history of other venous thrombosis and embolism; Z85.810 Personal history of malignant neoplasm of tongue; Z85.12 Personal history of malignant neoplasm of trachea; Z92.21 Personal history of antineoplastic chemotherapy; Z92.3 Personal history of irradiation; E66.9 Obesity, unspecified; Z68.32 Body mass index [BMI] 32.0-32.9, adult; Z71.3 Dietary counseling and surveillance; E11.622 Type 2 diabetes mellitus with other skin ulcer | CPT/HCPCS: 11042; 11045; A6209 ×2; A6253 ×3; A6402 ×2 ==

== ENCOUNTER 2017-04-13 11:24 | Outpatient (CLI) | payer MEDICARE, MEDICAID | END 2017-04-13 23:59 | disposition home or self-care (01) | LOC: WOU 11:24 | PROVIDERS: ATTEND Podiatrist Foot & Ankle Surgery | DX: I83.223 Varicose veins of left lower extremity with both ulcer of ankle and inflammation (principal); L97.321 Non-pressure chronic ulcer of left ankle limited to breakdown of skin; I83.228 Varicose veins of left lower extremity with both ulcer of other part of lower extremity and inflammation; L97.821 Non-pressure chronic ulcer of other part of left lower leg limited to breakdown of skin; L03.116 Cellulitis of left lower limb; G89.29 Other chronic pain; I89.0 Lymphedema, not elsewhere classified; M21.542 Acquired clubfoot, left foot; Z85.810 Personal history of malignant neoplasm of tongue; Z85.89 Personal history of malignant neoplasm of other organs and systems; Z92.21 Personal history of antineoplastic chemotherapy; Z92.3 Personal history of irradiation; E66.9 Obesity, unspecified; Z68.32 Body mass index [BMI] 32.0-32.9, adult; E11.9 Type 2 diabetes mellitus without complications; R26.9 Unspecified abnormalities of gait and mobility | CPT/HCPCS: 11042; 11045; A6209 ×2; A6253 ×2; A6402 ×2 ==

== ENCOUNTER 2017-04-20 11:02 | Outpatient (CLI) | payer MEDICARE, MEDICAID | END 2017-04-20 23:59 | disposition home or self-care (01) | LOC: WOU 11:02 | PROVIDERS: ATTEND Podiatrist Foot & Ankle Surgery | DX: I83.223 Varicose veins of left lower extremity with both ulcer of ankle and inflammation (principal); L97.321 Non-pressure chronic ulcer of left ankle limited to breakdown of skin; I83.228 Varicose veins of left lower extremity with both ulcer of other part of lower extremity and inflammation; L97.821 Non-pressure chronic ulcer of other part of left lower leg limited to breakdown of skin; G89.29 Other chronic pain; I89.0 Lymphedema, not elsewhere classified; M21.542 Acquired clubfoot, left foot; Z85.810 Personal history of malignant neoplasm of tongue; Z85.89 Personal history of malignant neoplasm of other organs and systems; Z92.21 Personal history of antineoplastic chemotherapy; Z92.3 Personal history of irradiation; E66.9 Obesity, unspecified; Z68.32 Body mass index [BMI] 32.0-32.9, adult; R26.9 Unspecified abnormalities of gait and mobility; E11.42 Type 2 diabetes mellitus with diabetic polyneuropathy; E11.65 Type 2 diabetes mellitus with hyperglycemia; I10 Essential (primary) hypertension; Z79.899 Other long term (current) drug therapy | CPT/HCPCS: 11042; 11045; A6209; A6253; A6402 ==

== ENCOUNTER 2017-04-30 10:25 | Outpatient (CLI) | payer MEDICARE, MEDICAID | END 2017-04-30 23:59 | disposition home or self-care (01) | LOC: WOU 10:25 | PROVIDERS: ATTEND Podiatrist Foot & Ankle Surgery | DX: I83.023 Varicose veins of left lower extremity with ulcer of ankle (principal); L97.321 Non-pressure chronic ulcer of left ankle limited to breakdown of skin; I83.028 Varicose veins of left lower extremity with ulcer other part of lower leg; L97.821 Non-pressure chronic ulcer of other part of left lower leg limited to breakdown of skin; I83.892 Varicose veins of left lower extremity with other complications; Z86.718 Personal history of other venous thrombosis and embolism; Z79.52 Long term (current) use of systemic steroids; E11.622 Type 2 diabetes mellitus with other skin ulcer; M21.172 Varus deformity, not elsewhere classified, left ankle | CPT/HCPCS: 11042; 11045; A6209 ×2; A6253 ×2; A6402 ==

== ENCOUNTER 2017-05-07 14:00 | Outpatient (CLI) | payer MEDICARE, MEDICAID | END 2017-05-07 23:59 | disposition home or self-care (01) | LOC: WOU 14:00 | PROVIDERS: ATTEND Podiatrist Foot & Ankle Surgery | DX: I83.023 Varicose veins of left lower extremity with ulcer of ankle (principal); L97.321 Non-pressure chronic ulcer of left ankle limited to breakdown of skin; I83.028 Varicose veins of left lower extremity with ulcer other part of lower leg; L97.821 Non-pressure chronic ulcer of other part of left lower leg limited to breakdown of skin; E11.42 Type 2 diabetes mellitus with diabetic polyneuropathy; E66.9 Obesity, unspecified; Z68.32 Body mass index [BMI] 32.0-32.9, adult; Z79.52 Long term (current) use of systemic steroids; Z86.718 Personal history of other venous thrombosis and embolism; M21.172 Varus deformity, not elsewhere classified, left ankle; S82.892S Other fracture of left lower leg, sequela; X58.XXXS Exposure to other specified factors, sequela | CPT/HCPCS: 97606; A6402 ==

== ENCOUNTER 2017-05-11 08:34 | Outpatient (CLI) | payer MEDICARE, MEDICAID | END 2017-05-11 23:59 | disposition home or self-care (01) | LOC: WOU 08:34 | PROVIDERS: ATTEND Podiatrist Foot & Ankle Surgery | DX: I83.023 Varicose veins of left lower extremity with ulcer of ankle (principal); L97.321 Non-pressure chronic ulcer of left ankle limited to breakdown of skin; I83.028 Varicose veins of left lower extremity with ulcer other part of lower leg; L97.821 Non-pressure chronic ulcer of other part of left lower leg limited to breakdown of skin; E11.42 Type 2 diabetes mellitus with diabetic polyneuropathy; E66.9 Obesity, unspecified; Z68.32 Body mass index [BMI] 32.0-32.9, adult; Z79.52 Long term (current) use of systemic steroids; Z86.718 Personal history of other venous thrombosis and embolism; M21.172 Varus deformity, not elsewhere classified, left ankle; S82.892S Other fracture of left lower leg, sequela; X58.XXXS Exposure to other specified factors, sequela; I83.892 Varicose veins of left lower extremity with other complications | CPT/HCPCS: 11042; 11045; 97606-TC; A6402 ==

== ENCOUNTER 2017-05-14 09:45 | Outpatient (CLI) | payer MEDICARE, MEDICAID ==
[2017-05-14 12:07] LABS: ALBUMIN 2.4 g/dL (3.4-5.0)
[2017-05-14 13:27] LABS: PREALBUMIN 13.5 MG/DL (18.0-35.7)
== END 2017-05-14 23:59 | disposition home or self-care (01) ==
LOC: WOU 09:45
PROVIDERS: ATTEND Podiatrist Foot & Ankle Surgery
DX: E11.59 Type 2 diabetes mellitus with other circulatory complications (principal); L03.116 Cellulitis of left lower limb; Z79.52 Long term (current) use of systemic steroids; I83.892 Varicose veins of left lower extremity with other complications; E66.9 Obesity, unspecified; Z68.32 Body mass index [BMI] 32.0-32.9, adult; B96.5 Pseudomonas (aeruginosa) (mallei) (pseudomallei) as the cause of diseases classified elsewhere; B96.1 Klebsiella pneumoniae [K. pneumoniae] as the cause of diseases classified elsewhere; B95.2 Enterococcus as the cause of diseases classified elsewhere; Z86.718 Personal history of other venous thrombosis and embolism; E11.622 Type 2 diabetes mellitus with other skin ulcer; L97.321 Non-pressure chronic ulcer of left ankle limited to breakdown of skin; L97.821 Non-pressure chronic ulcer of other part of left lower leg limited to breakdown of skin
CPT/HCPCS: 11042; 11045; 36415; 82040; 84134; 97606; A6402 ×2

== ENCOUNTER 2017-05-18 10:05 | Outpatient (CLI) | payer MEDICARE, MEDICAID | END 2017-05-18 23:59 | disposition home or self-care (01) | LOC: WOU 10:05 | PROVIDERS: ATTEND Podiatrist Foot & Ankle Surgery | DX: E11.59 Type 2 diabetes mellitus with other circulatory complications (principal); I83.028 Varicose veins of left lower extremity with ulcer other part of lower leg; L97.321 Non-pressure chronic ulcer of left ankle limited to breakdown of skin; L97.821 Non-pressure chronic ulcer of other part of left lower leg limited to breakdown of skin; L03.116 Cellulitis of left lower limb; B96.5 Pseudomonas (aeruginosa) (mallei) (pseudomallei) as the cause of diseases classified elsewhere; B96.1 Klebsiella pneumoniae [K. pneumoniae] as the cause of diseases classified elsewhere; B95.2 Enterococcus as the cause of diseases classified elsewhere; E66.9 Obesity, unspecified; Z68.32 Body mass index [BMI] 32.0-32.9, adult; Z86.718 Personal history of other venous thrombosis and embolism; Z79.52 Long term (current) use of systemic steroids | CPT/HCPCS: 11042; 11045; 36415; 82962; 83036; 97606; A6402; J3490 ==

== ENCOUNTER 2017-05-25 10:06 | Outpatient (CLI) | payer MEDICARE, MEDICAID | END 2017-05-25 23:59 | disposition home or self-care (01) | LOC: WOU 10:06 | PROVIDERS: ATTEND Podiatrist Foot & Ankle Surgery | DX: E11.59 Type 2 diabetes mellitus with other circulatory complications (principal); I83.023 Varicose veins of left lower extremity with ulcer of ankle; L97.322 Non-pressure chronic ulcer of left ankle with fat layer exposed; I83.892 Varicose veins of left lower extremity with other complications; M21.542 Acquired clubfoot, left foot; Z86.718 Personal history of other venous thrombosis and embolism; E66.9 Obesity, unspecified; Z68.32 Body mass index [BMI] 32.0-32.9, adult; Z88.6 Allergy status to analgesic agent | CPT/HCPCS: 11042; 11045; 97606; A6402 ×2 ==

== ENCOUNTER 2017-05-28 10:18 | Outpatient (CLI) | payer MEDICARE, MEDICAID | END 2017-05-28 23:59 | disposition home or self-care (01) | LOC: WOU 10:18 | PROVIDERS: ATTEND Podiatrist Foot & Ankle Surgery | DX: I83.023 Varicose veins of left lower extremity with ulcer of ankle (principal); L97.321 Non-pressure chronic ulcer of left ankle limited to breakdown of skin; E66.9 Obesity, unspecified; Z68.32 Body mass index [BMI] 32.0-32.9, adult; I83.892 Varicose veins of left lower extremity with other complications; E11.59 Type 2 diabetes mellitus with other circulatory complications; Z86.718 Personal history of other venous thrombosis and embolism; Z79.52 Long term (current) use of systemic steroids; Z79.84 Long term (current) use of oral hypoglycemic drugs; Z79.899 Other long term (current) drug therapy | CPT/HCPCS: 11042; 11045; 97606; A6402; A6452 ==

== ENCOUNTER → 2017-06-01 | Outpatient (CLI) | payer MEDICARE, MEDICAID | END | disposition home or self-care (01) | LOC: WOU 11:10 | PROVIDERS: ATTEND Podiatrist Foot & Ankle Surgery | DX: I83.023 Varicose veins of left lower extremity with ulcer of ankle (principal); L97.321 Non-pressure chronic ulcer of left ankle limited to breakdown of skin; E66.9 Obesity, unspecified; I83.892 Varicose veins of left lower extremity with other complications; E11.59 Type 2 diabetes mellitus with other circulatory complications; Z86.718 Personal history of other venous thrombosis and embolism; Z79.52 Long term (current) use of systemic steroids; Z79.84 Long term (current) use of oral hypoglycemic drugs; Z79.899 Other long term (current) drug therapy; L03.116 Cellulitis of left lower limb; M21.172 Varus deformity, not elsewhere classified, left ankle | CPT/HCPCS: 11042; 11045; 97606; A6402 ×2; A6452 ==

== ENCOUNTER 2017-06-08 10:34 | Outpatient (CLI) | payer MEDICARE, MEDICAID | END 2017-06-08 23:59 | disposition home or self-care (01) | LOC: WOU 10:34 | PROVIDERS: ATTEND Podiatrist Foot & Ankle Surgery | DX: E11.51 Type 2 diabetes mellitus with diabetic peripheral angiopathy without gangrene (principal); L97.321 Non-pressure chronic ulcer of left ankle limited to breakdown of skin; L03.116 Cellulitis of left lower limb; R60.0 Localized edema; M79.662 Pain in left lower leg; Z86.718 Personal history of other venous thrombosis and embolism; E66.9 Obesity, unspecified; Z68.32 Body mass index [BMI] 32.0-32.9, adult; M21.172 Varus deformity, not elsewhere classified, left ankle; S82.892S Other fracture of left lower leg, sequela; X58.XXXS Exposure to other specified factors, sequela | CPT/HCPCS: 29580; A6253; A6402 ==

== ENCOUNTER 2017-06-11 09:18 | Outpatient (CLI) | payer MEDICARE, MEDICAID | END 2017-06-11 23:59 | disposition home or self-care (01) | LOC: WOU 09:18 | PROVIDERS: ATTEND Podiatrist Foot & Ankle Surgery | DX: E11.51 Type 2 diabetes mellitus with diabetic peripheral angiopathy without gangrene (principal); L97.321 Non-pressure chronic ulcer of left ankle limited to breakdown of skin; Z86.718 Personal history of other venous thrombosis and embolism; E66.9 Obesity, unspecified; Z68.32 Body mass index [BMI] 32.0-32.9, adult; M21.172 Varus deformity, not elsewhere classified, left ankle; S82.892S Other fracture of left lower leg, sequela; X58.XXXS Exposure to other specified factors, sequela; I89.0 Lymphedema, not elsewhere classified; Z92.21 Personal history of antineoplastic chemotherapy; B35.1 Tinea unguium | CPT/HCPCS: 11042; 11045; 97606-TC; A6402; A6452; J7040 ==

== ENCOUNTER 2017-06-15 09:50 | Outpatient (CLI) | payer MEDICARE, MEDICAID | END 2017-06-15 23:59 | disposition home or self-care (01) | LOC: WOU 09:50 | PROVIDERS: ATTEND Podiatrist Foot & Ankle Surgery | DX: E11.51 Type 2 diabetes mellitus with diabetic peripheral angiopathy without gangrene (principal); L97.321 Non-pressure chronic ulcer of left ankle limited to breakdown of skin; I87.2 Venous insufficiency (chronic) (peripheral); L03.116 Cellulitis of left lower limb; Z86.718 Personal history of other venous thrombosis and embolism; E66.9 Obesity, unspecified; Z68.32 Body mass index [BMI] 32.0-32.9, adult; M21.172 Varus deformity, not elsewhere classified, left ankle; S82.892S Other fracture of left lower leg, sequela; X58.XXXS Exposure to other specified factors, sequela; I89.0 Lymphedema, not elsewhere classified; Z92.21 Personal history of antineoplastic chemotherapy; B35.1 Tinea unguium | CPT/HCPCS: 11042; 11045; 97606-TC; A6402; A6452; J7040 ==

== ENCOUNTER 2017-06-18 09:00 | Outpatient (CLI) | payer MEDICARE, MEDICAID | END 2017-06-18 23:59 | disposition home or self-care (01) | LOC: WOU 09:00 | PROVIDERS: ATTEND Podiatrist Foot & Ankle Surgery | DX: E11.51 Type 2 diabetes mellitus with diabetic peripheral angiopathy without gangrene (principal); E11.622 Type 2 diabetes mellitus with other skin ulcer; R60.0 Localized edema; L97.321 Non-pressure chronic ulcer of left ankle limited to breakdown of skin; I87.2 Venous insufficiency (chronic) (peripheral); Z86.718 Personal history of other venous thrombosis and embolism; E66.9 Obesity, unspecified; Z68.32 Body mass index [BMI] 32.0-32.9, adult; Z71.3 Dietary counseling and surveillance; M21.172 Varus deformity, not elsewhere classified, left ankle; Z79.84 Long term (current) use of oral hypoglycemic drugs; Z79.52 Long term (current) use of systemic steroids; Z79.899 Other long term (current) drug therapy | CPT/HCPCS: 11042; 11045; 97606; A6402; A6452; J7040 ==

== ENCOUNTER 2017-06-22 12:45 | Outpatient (CLI) | payer MEDICARE, MEDICAID | END 2017-06-22 23:59 | disposition home or self-care (01) | LOC: WOU 12:45 | PROVIDERS: ATTEND Podiatrist Foot & Ankle Surgery | DX: E11.51 Type 2 diabetes mellitus with diabetic peripheral angiopathy without gangrene (principal); E11.622 Type 2 diabetes mellitus with other skin ulcer; L03.116 Cellulitis of left lower limb; L97.321 Non-pressure chronic ulcer of left ankle limited to breakdown of skin; R60.0 Localized edema; I87.2 Venous insufficiency (chronic) (peripheral); Z86.718 Personal history of other venous thrombosis and embolism; E66.9 Obesity, unspecified; Z68.32 Body mass index [BMI] 32.0-32.9, adult; Z71.3 Dietary counseling and surveillance; M21.172 Varus deformity, not elsewhere classified, left ankle; Z79.84 Long term (current) use of oral hypoglycemic drugs; Z79.52 Long term (current) use of systemic steroids; Z79.899 Other long term (current) drug therapy | CPT/HCPCS: 11042; 11045; A6253 ×2; A6402 ×2; A6452; J7040 ==

== ENCOUNTER 2017-06-25 12:38 | Outpatient (CLI) | payer MEDICARE, MEDICAID | END 2017-06-25 23:59 | disposition home or self-care (01) | LOC: WOU 12:38 | PROVIDERS: ATTEND Podiatrist Foot & Ankle Surgery | DX: E11.51 Type 2 diabetes mellitus with diabetic peripheral angiopathy without gangrene (principal); I87.2 Venous insufficiency (chronic) (peripheral); R60.0 Localized edema; Z86.718 Personal history of other venous thrombosis and embolism; E66.9 Obesity, unspecified; Z68.32 Body mass index [BMI] 32.0-32.9, adult; M21.172 Varus deformity, not elsewhere classified, left ankle; Z79.84 Long term (current) use of oral hypoglycemic drugs; Z79.52 Long term (current) use of systemic steroids; Z79.899 Other long term (current) drug therapy; L03.116 Cellulitis of left lower limb | CPT/HCPCS: 11042; 11045; 97606; A6197 ×2; A6402 ×2; J7040 ==

== ENCOUNTER 2017-06-29 09:04 | Outpatient (CLI) | payer MEDICARE, MEDICAID | END 2017-06-29 23:59 | disposition home or self-care (01) | LOC: WOU 09:04 | PROVIDERS: ATTEND Podiatrist Foot & Ankle Surgery | DX: E11.51 Type 2 diabetes mellitus with diabetic peripheral angiopathy without gangrene (principal); L97.321 Non-pressure chronic ulcer of left ankle limited to breakdown of skin; I87.2 Venous insufficiency (chronic) (peripheral); R60.0 Localized edema; Z86.718 Personal history of other venous thrombosis and embolism; E66.9 Obesity, unspecified; Z68.32 Body mass index [BMI] 32.0-32.9, adult; M21.172 Varus deformity, not elsewhere classified, left ankle; Z79.84 Long term (current) use of oral hypoglycemic drugs; Z79.52 Long term (current) use of systemic steroids; Z79.899 Other long term (current) drug therapy | CPT/HCPCS: 11042; 11045; 97606-TC; A6197; A6402; J7040 ==

== ENCOUNTER 2017-07-02 13:54 | Outpatient (CLI) | payer MEDICARE, MEDICAID | END 2017-07-02 23:59 | disposition home or self-care (01) | LOC: WOU 13:54 | PROVIDERS: ATTEND Podiatrist Foot & Ankle Surgery | DX: E11.51 Type 2 diabetes mellitus with diabetic peripheral angiopathy without gangrene (principal); L97.321 Non-pressure chronic ulcer of left ankle limited to breakdown of skin; I87.2 Venous insufficiency (chronic) (peripheral); R60.0 Localized edema; Z86.718 Personal history of other venous thrombosis and embolism; E66.9 Obesity, unspecified; Z68.32 Body mass index [BMI] 32.0-32.9, adult; M21.172 Varus deformity, not elsewhere classified, left ankle; Z79.84 Long term (current) use of oral hypoglycemic drugs; Z79.52 Long term (current) use of systemic steroids; Z79.899 Other long term (current) drug therapy | CPT/HCPCS: 11042; 11045; A6197 ×2; A6402; J7040; G0463 ==

== ENCOUNTER 2017-07-06 10:02 | Outpatient (CLI) | payer MEDICARE, MEDICAID | END 2017-07-06 23:59 | disposition home or self-care (01) | LOC: WOU 10:02 | PROVIDERS: ATTEND Podiatrist Foot & Ankle Surgery | DX: I83.222 Varicose veins of left lower extremity with both ulcer of calf and inflammation (principal); L97.322 Non-pressure chronic ulcer of left ankle with fat layer exposed; I83.892 Varicose veins of left lower extremity with other complications; E11.51 Type 2 diabetes mellitus with diabetic peripheral angiopathy without gangrene; E66.9 Obesity, unspecified; Z68.32 Body mass index [BMI] 32.0-32.9, adult; Z71.3 Dietary counseling and surveillance; Z86.718 Personal history of other venous thrombosis and embolism; Z79.84 Long term (current) use of oral hypoglycemic drugs; Z79.52 Long term (current) use of systemic steroids; M25.572 Pain in left ankle and joints of left foot | CPT/HCPCS: 11042; 11045; 97606-TC; A6197; A6402 ==

== ENCOUNTER 2017-07-09 09:57 | Outpatient (CLI) | payer MEDICARE, MEDICAID | END 2017-07-09 23:59 | disposition home or self-care (01) | LOC: WOU 09:57 | PROVIDERS: ATTEND Podiatrist Foot & Ankle Surgery | DX: I87.2 Venous insufficiency (chronic) (peripheral) (principal); L97.321 Non-pressure chronic ulcer of left ankle limited to breakdown of skin; E11.51 Type 2 diabetes mellitus with diabetic peripheral angiopathy without gangrene; E66.9 Obesity, unspecified; Z68.32 Body mass index [BMI] 32.0-32.9, adult; Z71.3 Dietary counseling and surveillance; Z86.718 Personal history of other venous thrombosis and embolism; Z79.84 Long term (current) use of oral hypoglycemic drugs; Z79.52 Long term (current) use of systemic steroids; I89.0 Lymphedema, not elsewhere classified; R60.0 Localized edema | CPT/HCPCS: 11042; 11045; 97606-TC; A6197; A6402 ==

== ENCOUNTER 2017-07-13 09:52 | Outpatient (CLI) | payer MEDICARE, MEDICAID | END 2017-07-13 23:59 | disposition home or self-care (01) | DX: E11.51 Type 2 diabetes mellitus with diabetic peripheral angiopathy without gangrene (principal); I87.2 Venous insufficiency (chronic) (peripheral); L97.321 Non-pressure chronic ulcer of left ankle limited to breakdown of skin; E66.9 Obesity, unspecified; Z68.32 Body mass index [BMI] 32.0-32.9, adult; Z86.718 Personal history of other venous thrombosis and embolism; Z79.84 Long term (current) use of oral hypoglycemic drugs; Z79.52 Long term (current) use of systemic steroids; R60.0 Localized edema; I89.0 Lymphedema, not elsewhere classified; Z85.79 Personal history of other malignant neoplasms of lymphoid, hematopoietic and related tissues; Z92.21 Personal history of antineoplastic chemotherapy; Z92.3 Personal history of irradiation | CPT/HCPCS: A6253; A6402; A6452; G0463 ==

== ENCOUNTER 2017-07-16 08:55 | Outpatient (CLI) | payer MEDICARE, MEDICAID | END 2017-07-16 23:59 | disposition home or self-care (01) | LOC: WOU 08:55 | PROVIDERS: ATTEND Podiatrist Foot & Ankle Surgery | DX: I87.2 Venous insufficiency (chronic) (peripheral) (principal); I89.0 Lymphedema, not elsewhere classified; L97.321 Non-pressure chronic ulcer of left ankle limited to breakdown of skin; E11.51 Type 2 diabetes mellitus with diabetic peripheral angiopathy without gangrene; E66.9 Obesity, unspecified; Z68.32 Body mass index [BMI] 32.0-32.9, adult; Z71.3 Dietary counseling and surveillance; Z86.718 Personal history of other venous thrombosis and embolism; Z79.84 Long term (current) use of oral hypoglycemic drugs; Z79.52 Long term (current) use of systemic steroids; R60.0 Localized edema; M21.172 Varus deformity, not elsewhere classified, left ankle | CPT/HCPCS: 11042; 11045; 97606; A6197; A6402; A6452 ==

== ENCOUNTER 2017-07-20 09:47 | Outpatient (CLI) | payer MEDICARE, MEDICAID | END 2017-07-20 23:59 | disposition home or self-care (01) | LOC: WOU 09:47 | PROVIDERS: ATTEND Podiatrist Foot & Ankle Surgery | DX: I87.2 Venous insufficiency (chronic) (peripheral) (principal); I89.0 Lymphedema, not elsewhere classified; L97.321 Non-pressure chronic ulcer of left ankle limited to breakdown of skin; E11.51 Type 2 diabetes mellitus with diabetic peripheral angiopathy without gangrene; E66.9 Obesity, unspecified; Z68.32 Body mass index [BMI] 32.0-32.9, adult; Z86.718 Personal history of other venous thrombosis and embolism; Z79.84 Long term (current) use of oral hypoglycemic drugs; Z79.52 Long term (current) use of systemic steroids; R60.0 Localized edema; M21.172 Varus deformity, not elsewhere classified, left ankle; G89.29 Other chronic pain; B35.1 Tinea unguium | CPT/HCPCS: 11042; 11045; 97606; A6197 ×2; A6402; A6452 ==

== ENCOUNTER 2017-07-23 09:40 | Outpatient (CLI) | payer MEDICARE, MEDICAID | END 2017-07-23 23:59 | disposition home or self-care (01) | LOC: WOU 09:40 | PROVIDERS: ATTEND Podiatrist Foot & Ankle Surgery | DX: I87.2 Venous insufficiency (chronic) (peripheral) (principal); I89.0 Lymphedema, not elsewhere classified; L97.321 Non-pressure chronic ulcer of left ankle limited to breakdown of skin; E11.51 Type 2 diabetes mellitus with diabetic peripheral angiopathy without gangrene; E66.9 Obesity, unspecified; Z68.32 Body mass index [BMI] 32.0-32.9, adult; Z86.718 Personal history of other venous thrombosis and embolism; Z79.84 Long term (current) use of oral hypoglycemic drugs; Z79.52 Long term (current) use of systemic steroids; R60.0 Localized edema; M21.172 Varus deformity, not elsewhere classified, left ankle; G89.29 Other chronic pain | CPT/HCPCS: 11042; 11045; 97606; A6197 ×2; A6402; A6452 ==

== ENCOUNTER 2017-07-27 09:15 | Outpatient (CLI) | payer MEDICARE, MEDICAID | END 2017-07-27 23:59 | disposition home or self-care (01) | LOC: WOU 09:15 | PROVIDERS: ATTEND Podiatrist Foot & Ankle Surgery | DX: E11.51 Type 2 diabetes mellitus with diabetic peripheral angiopathy without gangrene (principal); I87.2 Venous insufficiency (chronic) (peripheral); L97.321 Non-pressure chronic ulcer of left ankle limited to breakdown of skin; E11.622 Type 2 diabetes mellitus with other skin ulcer; I89.0 Lymphedema, not elsewhere classified; M21.172 Varus deformity, not elsewhere classified, left ankle; Z86.718 Personal history of other venous thrombosis and embolism; Z79.84 Long term (current) use of oral hypoglycemic drugs; Z79.899 Other long term (current) drug therapy; Z79.52 Long term (current) use of systemic steroids | CPT/HCPCS: 11042; 11045; A6253; A6402; A6452 ==

== ENCOUNTER 2017-07-30 09:42 | Outpatient (CLI) | payer MEDICARE, MEDICAID | END 2017-07-30 23:59 | disposition home or self-care (01) | LOC: WOU 09:42 | PROVIDERS: ATTEND Podiatrist Foot & Ankle Surgery | DX: I87.2 Venous insufficiency (chronic) (peripheral) (principal); L97.321 Non-pressure chronic ulcer of left ankle limited to breakdown of skin; R60.0 Localized edema; E11.610 Type 2 diabetes mellitus with diabetic neuropathic arthropathy; E11.51 Type 2 diabetes mellitus with diabetic peripheral angiopathy without gangrene; Z86.718 Personal history of other venous thrombosis and embolism; Z79.84 Long term (current) use of oral hypoglycemic drugs; Z79.899 Other long term (current) drug therapy; E66.9 Obesity, unspecified; Z68.32 Body mass index [BMI] 32.0-32.9, adult; M21.542 Acquired clubfoot, left foot | CPT/HCPCS: 11042; 11045; 93971-TC; A6253; A6402; A6452 ==

== ENCOUNTER 2017-07-30 17:59 | Inpatient (IN) | payer MEDICARE, MEDICAID ==
[~2017-07-30] VITALS: Ht 157.5 cm; Wt 82.1 kg
--- NOTE | 2017-07-30 17:59 | NUR ---
BIB FAMILY SENT FROM [facility] FOR DVT TO LEFT LEG AND WOUND EVAL TO LEFT LOWER LEG
[2017-07-30] MEDS ORDERED: ENOXAPARIN SODIUM 80 MG/0.8 ML DISP.SYRIN SQ ONE ×2 (18:30→18:43)
--- NOTE | 2017-07-30 18:34 | NUR ---
RAC #18 IV ACCESS. BLOOD SAMPLE COLLECTED SENT TO LAB
[2017-07-30 18:46] LABS: BASOPHILS # (AUTO) 0.1 /CMM (0.0-0.2); BASOPHILS % (AUTO) 0.8 % (0.0-2.0); EOSINOPHILS # (AUTO) 0.3 /CMM (0.0-0.7); EOSINOPHILS % (AUTO) 2.7 % (0.0-6.0); HEMATOCRIT 34 % (33-45); HEMOGLOBIN 11.1 g/dL (11.5-14.8); LYMPHOCYTES # (AUTO) 2.3 /CMM (0.8-4.8); LYMPHOCYTES % (AUTO) 19.2 % (20.0-44.0); MEAN CORPUSCULAR HEMOGLOBIN 27 PG (26.0-33.0); MEAN CORPUSCULAR HGB CONC 33 g/dl (31.0-36.0); MEAN CORPUSCULAR VOLUME 83 fL (82-100); MONOCYTES % (AUTO) 8.1 % (2.0-12.0); NEUTROPHILS # (AUTO) 8.3 /CMM (1.8-8.9); NEUTROPHILS % (AUTO) 69.2 % (43.0-81.0); PLATELET COUNT (AUTO) 405 /CMM (150-450); RDW COEFFICIENT OF VARIATION 14.4 (11.5-15.0); RED BLOOD CELL COUNT(AUTO) 4.04 MIL/uL (4.0-5.2)
--- NOTE | 2017-07-30 18:47 | NUR ---
SOFTBALL COACH AT BEDSIDE
[2017-07-30 18:57] LABS: CALCIUM, SERUM 8.7 mg/dL (8.5-10.1); CARBON DIOXIDE 31 mmol/L (21-32); CHLORIDE 101 mmol/L (98-107); CREATININE 0.5 mg/dL (0.6-1.3); GLUCOSE 164 mg/dL (74-106); SODIUM SERUM 136 mmol/L (136-145); UREA NITROGEN, BLOOD 34 mg/dL (7-18)
[2017-07-30 19:05] LABS: ALANINE AMINOTRANSFERASE 16 U/L (12-78); ALBUMIN 2.6 g/dL (3.4-5.0); ALKALINE PHOSPHATASE 72 U/L (46-116); ASPARTATE AMINOTRANSFERASE 13 U/L (15-37); BILIRUBIN,TOTAL 0.2 mg/dL (0.2-1.0); TOTAL PROTEIN, SERUM 7.3 g/dL (6.4-8.2)
[2017-07-30 19:10] LABS: INR 0.89 (0.87-1.13); PROTHROMBIN TIME 9.3 SECS (9.5-12.7)
[2017-07-30 19:12] LABS: TROPONIN I < 0.017 ng/mL (0.00-0.056)
--- NOTE | 2017-07-30 19:16 | NUR ---
GAVE REPORT TO VERONICA FOR SUZIE
--- NOTE | 2017-07-30 19:24 | NUR ---
PATIENT IN BED, NO S/S OF ACUTE DISTRESS. VSS. FAMILY AT BEDSIDE. AWAITING FOR ROOM NUMBER FOR ADMISSION.
--- NOTE | 2017-07-30 19:36 | NUR ---
MS 314-1
--- NOTE | 2017-07-30 19:59 | NUR ---
Report given to Renee STANTON for admission and valeria.
--- NOTE | 2017-07-30 20:29 | NUR ---
PT BEING TRANSFERRED TO [facility] ROOM 321-1 DUE TO INSURANCE REQUEST, ACCEPTING DR IS . WILL CALL FOR AMBULANCE TRANSPORT.
[2017-07-30] MEDS ORDERED: INSULIN REGULAR, HUMAN 100 UNIT/ML 3 ML VIAL SQ PRN (20:30)
[2017-07-30] MEDS ORDERED: ONDANSETRON HCL/PF 4 MG/2 ML VIAL IVP PRN ×2 (20:30→21:15)
[2017-07-30] MEDS ORDERED: VANCOMYCIN 1 GM in IV D5W 250 ML IV SCH ×2 (20:30→21:15)
[2017-07-30] MEDS ORDERED: ZOLPIDEM TARTRATE 5 MG TABLET PO PRN ×2 (20:30→21:15)
[2017-07-30] MEDS ORDERED: ACETAMINOPHEN 325 MG TABLET PO PRN ×2 (20:30→21:15)
[2017-07-30] MEDS ORDERED: Z GUARD REMEDY 2 OZ OINT TP PRN ×2 (20:30→21:15)
[2017-07-30] MEDS ORDERED: MAG HYDROX/AL HYDROX/SIMETH 30 ML UDC PO PRN ×2 (20:30→21:15)
[2017-07-30] MEDS ORDERED: HYDROCODONE/APAP 5/325MG 1 EACH TABLET PO PRN ×2 (20:30→21:15)
[2017-07-30] MEDS ORDERED: MAGNESIUM HYDROXIDE 30 ML UDC PO PRN ×2 (20:30→21:15)
[2017-07-30] MEDS ORDERED: DEXTROSE 50%-WATER 50 ML DISP.SYRIN IV PRN ×2 (20:30→21:15)
[2017-07-30] MEDS ORDERED: TRAMADOL HCL 50 MG TABLET PO PRN ×2 (20:30→21:15)
--- NOTE | 2017-07-30 20:38 | NUR ---
CALLED [facility] FOR TRANSPORT TO [facility], ETA 2200
--- NOTE | 2017-07-30 20:42 | NUR ---
PT DID NOT WANT TO GO TO [facility], WE CALLED INSURANCE AND THEY CONFIRMED SHE CAN STAY HERE, CALLED [facility] BACK TO CANCEL TRANSPORTATION
--- NOTE | 2017-07-30 20:42 | NUR ---
PATIENT REFUSED TO GO TO CONTRACTED HOSPITAL. EXPLAINED RISKS AND BENEFITS TO PATIENT AND FAMILY, THEY STILL REFUSED.
--- NOTE | 2017-07-30 20:45 | NUR ---
SPOKE TO HALEY, SINGLE WIRE SAW OPERATOR, AND NOTIFIED RE PATIENT'S REFUSAL.
[2017-07-30 21:00] VITALS: BP 137/53
--- NOTE | 2017-07-30 21:00 | NUR ---
MS DOCUMENT PHOTOGRAPHER NOTES RECEIVED FROM ER PER MICHAELEDIN ACCOMPANIED BY DAUGHTER,ALERT,ORIENTED X3,SPEAK PANAMANIAN,WITH CHIEF COMPLAINTS OF POSITIVE DVT CONFIRMED BY DOPPLER ULTRASOUND.S/P WOUND DEBRIDEMENT AT WOUND CLINIC TODAY.DRESSING INTACT AND DRY.UNABLE TO TAKE PICTURE.PER DAUGHTER NOT TO TAKE OUT DRESSING 'TILL TOMORROW PER DR DIETRICH.SALINE LOCK RIGHT AC INTACT AND PATENT.LOVENOX 80MG SQ STARTED GIVEN IN ER FOR DVT PROPHYLAXIS.AMBULATE WITH WALKER.CALL LIGHT IN REACH,NEEDS ANTICIPATED.
--- NOTE | 2017-07-30 21:08 | NUR ---
TRANSFERRED PATIENT TO TELE BED 314-2 VIA ALS PROTOCOL, NO INCIDENT NOTED.
[2017-07-30 21:30] VITALS: BP 137/53
[2017-07-30] MEDS ORDERED: BLOOD SUGAR DIAGNOSTIC 1 EACH STRIP IN SCH (22:00)
[2017-07-30] MEDS ORDERED: VANCOMYCIN 1 GM VIAL ONE (22:50)
--- NOTE | 2017-07-30 23:00 | NUR ---
MS RN NOTES STARTED ON VANCOMYCIN 1GM IVPB ORDERED.
--- NOTE | 2017-07-31 04:00 | NUR ---
MS RN NOTES SOUND ASLEEP.KEPT WARM AND COMFORTABLE.
--- NOTE | 2017-07-31 06:53 | NUR ---
MS RN NOTES SLEPT WELL AT NOC,DENIES PAIN.SALINE LOCK REMAINS PATENT ON RIGHT AC.CALL LIGHT IN REACH,NEEDS ATTENDED.WILL ENDORSE TO DAY NURSE FOR SUZIE.
[2017-07-31] MEDS ORDERED: ENOXAPARIN SODIUM 60 MG/0.6 ML DISP.SYRIN SQ SCH ×2 (07:00)
--- NOTE | 2017-07-31 07:10 | NUR ---
MS/RN NOTES RECEIVED PATIENT IN BED, AWAKE, A/O X4. ON ROOM AIR, TOLERATING WELL, NO SOB. NO CURRENT DIET, PER NIGHT RN PATIENT IS EATING BLENDED FOOD AT HOME REPORTED BY FAMILY. WILL F/U WITH MD. PATIENT APPEARS COMFORTABLE IN BED, LLE WOUND DRESSING INTACT, NO C/O PAIN AT THIS TIME. CALL LIGHT WITHIN REACH. WILL CONT TO MONITOR.
[2017-07-31] MEDS ORDERED: LEVOTHYROXINE SODIUM 100 MCG TABLET PO SCH (07:30)
[2017-07-31 08:00] VITALS: BP 146/82
[2017-07-31] MEDS ORDERED: ASPIRIN EC 81 MG TABLET.DR PO SCH (09:00)
[2017-07-31] MEDS ORDERED: VANCOMYCIN 1 GM in IV D5W 250 ML IV SCH (09:00)
[2017-07-31] MEDS ORDERED: CARVEDILOL 12.5 MG TABLET PO SCH (09:00)
[2017-07-31] MEDS ORDERED: FOLIC ACID 1 MG TABLET PO SCH (09:00)
[2017-07-31] MEDS ORDERED: FERROUS SULFATE (325 MG) 325 MG/TAB TABLET PO SCH (09:00)
[2017-07-31] MEDS ORDERED: BENAZEPRIL HCL 20 MG TABLET PO SCH (09:00)
[2017-07-31] MEDS ORDERED: METFORMIN 850 MG TABLET PO SCH (09:00)
[2017-07-31] MEDS ORDERED: CALCIUM CARBONATE 500 MG TAB.CHEW PO SCH (09:00)
[2017-07-31] MEDS ORDERED: FEE PK DOSING 1 MIN EA MC ONE (09:15)
[2017-07-31] MEDS: BLOOD SUGAR DIAGNOSTIC 1 EACH STRIP IN SCH ×4 (09:20→22:05)
[2017-07-31] MEDS ORDERED: PIPERACILLIN /TAZOBACTAM 4.5 G in IV D5W 50 ML IV SCH (09:30)
[2017-07-31] MEDS: BENAZEPRIL HCL 20 MG TABLET PO SCH (09:55)
[2017-07-31] MEDS: ASPIRIN EC 81 MG TABLET.DR PO SCH (09:55)
[2017-07-31] MEDS: CALCIUM CARBONATE 500 MG TAB.CHEW PO SCH (09:56)
[2017-07-31] MEDS: FERROUS SULFATE (325 MG) 325 MG/TAB TABLET PO SCH ×2 (09:56→16:28)
[2017-07-31] MEDS: FOLIC ACID 1 MG TABLET PO SCH (09:56)
[2017-07-31] MEDS: METFORMIN 500 MG TABLET PO SCH ×2 (09:56→16:28)
[2017-07-31] MEDS: CARVEDILOL 12.5 MG TABLET PO SCH ×2 (09:57→20:57)
[2017-07-31] MEDS: RIVAROXABAN 15 MG TABLET PO SCH ×2 (10:01→16:29)
[2017-07-31] MEDS: LEVOTHYROXINE SODIUM 100 MCG TABLET PO SCH (10:05)
[2017-07-31] MEDS: INSULIN REGULAR, HUMAN 100 UNIT/ML 3 ML VIAL SQ PRN ×4 (10:05→22:14)
--- NOTE | 2017-07-31 10:08 | NUR ---
INSULIN REGULAR DOSE NON ADMINISTERED, PATIENT HAD LATE BREAKFAST AND ALREADY EAT.
[2017-07-31] MEDS: VANCOMYCIN 1 GM in IV D5W 250 ML IV SCH ×2 (11:39→22:05)
[2017-07-31] MEDS: PIPERACILLIN /TAZOBACTAM 3.375 G in IV D5W 50 ML IV SCH ×2 (12:50→18:10)
[2017-07-31 16:00] VITALS: BP_SYST 118; BP_DIAS 71; BP_DIAS 74
--- NOTE | 2017-07-31 18:09 | NUR ---
MS/RN CLOSING NOTES PATIENT IN BED, A/O X4. V/S REMAINS STABLE. BLOOD SUGAR MONITORED. ON ANTIBIOTIC WITH NO ADVERSE SIDE EFFECT, AFEBRILE, NO DIARRHEA. LLE DRESSING INTACT, NO C/O PAIN AT THIS TIME. CALL LIGHT WITHIN REACH. WILL ENDORSE TO HEAD BONE GRINDER RN FOR CONTINUITY OF CARE.
[2017-07-31 20:00] VITALS: BP 127/59
--- NOTE | 2017-07-31 22:15 | NUR ---
RN NOTES ACCUCHECK PERFORMED BG 100 MG/DL, NO INSULIN GIVEN
[2017-08-01] MEDS: PIPERACILLIN /TAZOBACTAM 3.375 G in IV D5W 50 ML IV SCH ×4 (00:36→17:56)
[2017-08-01] MEDS: BLOOD SUGAR DIAGNOSTIC 1 EACH STRIP IN SCH ×4 (06:30→22:05)
[2017-08-01] MEDS: INSULIN REGULAR, HUMAN 100 UNIT/ML 3 ML VIAL SQ PRN ×2 (06:42→13:02)
--- NOTE | 2017-08-01 06:42 | NUR ---
RN NOTES PATIENT IS AWAKE AND ALERT, NO SOB, NO DISTRESS, DENIES ANY PAIN AT THIS TIME, NO ADVERSE CHANGE OF CONDITION DURING SHIFT, COMPLIANT WITH MEDICATIONS, SLEPT FOR 6 HOURS, ASSISTED TO BEDSIDE COMMODE, ALL DUE MEDICATIONS GIVEN, CALL LIGHT WITHIN REACH.
[2017-08-01 07:17] LABS: CALCIUM, SERUM 8.5 mg/dL (8.5-10.1); CREATININE 0.6 mg/dL (0.6-1.3); POTASSIUM 3.9 mmol/L (3.5-5.1)
--- NOTE | 2017-08-01 07:30 | NUR ---
MS/RN NOTES RECEIVED PATIENT IN BED, AWAKE, A/O X3. APPEARS COMFORTABLE IN BED, BREATHING EVEN AND NON LABORED. LLE WOUND DRESSING INTACT, NO C/O PAIN AT THIS TIME. BED LOW, CALL LIGHT WITHIN REACH. WILL CONT TO MONITOR.
[2017-08-01 08:00] VITALS: BP 110/58
[2017-08-01] MEDS: FERROUS SULFATE (325 MG) 325 MG/TAB TABLET PO SCH ×2 (09:21→17:55)
[2017-08-01] MEDS: LEVOTHYROXINE SODIUM 100 MCG TABLET PO SCH (09:21)
[2017-08-01] MEDS: CALCIUM CARBONATE 500 MG TAB.CHEW PO SCH (09:22)
[2017-08-01] MEDS: METFORMIN 500 MG TABLET PO SCH ×2 (09:22→17:55)
[2017-08-01] MEDS: ASPIRIN EC 81 MG TABLET.DR PO SCH (09:22)
[2017-08-01] MEDS: FOLIC ACID 1 MG TABLET PO SCH (09:22)
[2017-08-01] MEDS: RIVAROXABAN 15 MG TABLET PO SCH ×2 (09:23→17:55)
[2017-08-01] MEDS: BENAZEPRIL HCL 20 MG TABLET PO SCH (09:23)
[2017-08-01] MEDS: CARVEDILOL 12.5 MG TABLET PO SCH ×2 (09:24→21:00)
[2017-08-01] MEDS: VANCOMYCIN 1 GM in IV D5W 250 ML IV SCH ×2 (11:53→22:59)
[2017-08-01 16:00] VITALS: BP 119/66
--- NOTE | 2017-08-01 19:03 | NUR ---
RN CLOSING NOTES PATIENT ALERT AND ORIENTED X3. VS STABLE. RESPIRATIONS EVEN AND UNLABORED. NO C/O PAIN. NO RESPIRATORY DISTRESS NOTED. IV ACCESS ON RIGHT FOREARM PATENT AND INTACT. BED IN LOW POSITION. SIDE RAILS X2. CALL LIGHT WITHIN REACH. WILL ENDORSE TO LEATHER FLESHERBLASTING CONTRACT MAN.
--- NOTE | 2017-08-01 19:30 | NUR ---
MS/RN NOTES RECEIVED PT. LYING IN BED. AWAKE, ALERT AND ORIENTED X3. BREATHING EVEN AND UNLABORED ON ROOM AIR. NO SOB, RESPIRATORY DISTRESS OR COMPLAINTS OF PAIN NOTED AT THIS TIME. PT. WITH LEFT FOREARM 22 GAUGE IV SALINE LOCK PRESENT, PATENT AND INTACT. PT. IS S/P LEFT LOWER LEG WOUND DEBRIDEMENT WITH DR. HYATT. PT. WITH LEFT LOWER EXTREMITY DRESSING PRESENT, CLEAN, DRY AND INTACT. AWAITING PODIATRY CONSULT. BED LOCKED AND IN LOWEST POSITION, CALL LIGHT WITHIN REACH, SIDE RAILS UP X2, WILL CONTINUE TO MONITOR.
[2017-08-01 20:30] VITALS: BP 125/65
[2017-08-01 20:33] VITALS: BP_SYST 123; BP_SYST 93; BP_DIAS 64; BP_DIAS 65
[2017-08-02] MEDS: PIPERACILLIN /TAZOBACTAM 3.375 G in IV D5W 50 ML IV SCH ×4 (00:18→17:17)
[2017-08-02 06:31] LABS: CALCIUM, SERUM 8.4 mg/dL (8.5-10.1); CREATININE 0.6 mg/dL (0.6-1.3); POTASSIUM 4.2 mmol/L (3.5-5.1)
[2017-08-02] MEDS: BLOOD SUGAR DIAGNOSTIC 1 EACH STRIP IN SCH ×4 (06:34→21:15)
--- NOTE | 2017-08-02 06:53 | NUR ---
MS/RN NOTES PT. IS LYING IN BED RESTING. BREATHING EVEN AND UNLABORED ON ROOM AIR. NO SOB, RESPIRATORY DISTRESS OR COMPLAINTS OF PAIN NOTED AT THIS TIME. PT. WITH LEFT FOREARM 22 GAUGE IV SALINE LOCK PRESENT, PATENT AND INTACT. PT. WITH LEFT LOWER EXTREMITY DRESSING PRESENT, CLEAN, DRY AND INTACT. NO BLEEDING OR DRAINAGE NOTED ON DRESSING. AWAITING PODIATRY CONSULT. ALL PT. NEEDS MET. ALL DUE MEDICATIONS GIVEN. BED LOCKED AND IN LOWEST POSITION, CALL LIGHT WITHIN REACH, SIDE RAILS UP X2, WILL ENDORSE TO DAYSHIFT NURSE FOR CONTINUITY OF CARE.
--- NOTE | 2017-08-02 07:30 | NUR ---
RN NOTES PATIENT ALERT AND ORIENTED X3. VS STABLE. NO C/O PAIN. RESPIRATIONS EVEN AND UNLABORED. IV ACCESS ON LFA PATENT AND INTACT. SKIN CLEAN AND DRY. NO BLEEDING OR DISCHARGE NOTED ON DRESSING OF LOWER EXTREMITIES. ANTIBIOTIC THERAPY CONTINUED. BED IN LOW POSITION. CALL LIGHT WITHIN REACH. SIDE RAILSX2. CONTINUE TO MONITOR.
[2017-08-02 08:00] VITALS: BP_SYST 136; BP_SYST 138; BP_DIAS 70
[2017-08-02] MEDS: ASPIRIN EC 81 MG TABLET.DR PO SCH (09:08)
[2017-08-02] MEDS: LEVOTHYROXINE SODIUM 100 MCG TABLET PO SCH (09:09)
[2017-08-02] MEDS: FOLIC ACID 1 MG TABLET PO SCH (09:09)
[2017-08-02] MEDS: CALCIUM CARBONATE 500 MG TAB.CHEW PO SCH (09:09)
[2017-08-02] MEDS: FERROUS SULFATE (325 MG) 325 MG/TAB TABLET PO SCH ×2 (09:09→16:54)
[2017-08-02] MEDS: CARVEDILOL 12.5 MG TABLET PO SCH ×2 (09:10→21:16)
[2017-08-02] MEDS: BENAZEPRIL HCL 20 MG TABLET PO SCH (09:10)
[2017-08-02] MEDS: METFORMIN 500 MG TABLET PO SCH ×2 (09:11→16:54)
[2017-08-02] MEDS: RIVAROXABAN 15 MG TABLET PO SCH ×2 (09:12→16:54)
[2017-08-02] MEDS: VANCOMYCIN 1 GM in IV D5W 250 ML IV SCH ×2 (10:28→22:56)
[2017-08-02] MEDS: INSULIN REGULAR, HUMAN 100 UNIT/ML 3 ML VIAL SQ PRN ×2 (11:58→21:18)
--- NOTE | 2017-08-02 16:30 | NUR ---
RN NOTES SEEN AND EVALUATED BY DR ANDERSON. STATUS POST WOUND DEBRIDEMENT OF LEFT LOWER EXTREMITY. WOUND CARE DONE. CONTINUE TO MONITOR AT THIS TIME.
--- NOTE | 2017-08-02 17:30 | NUR ---
RN NOTES BS 87. NO INSULIN ADMINISTERED ACCORDING TO PROTOCOL.
--- NOTE | 2017-08-02 19:00 | NUR ---
RN CLOSING NOTES PATIENT ALERT AND ORIENTED X3. VS STABLE. NO C/O PAIN. RESPIRATIONS EVEN AND UNLABORED. IV ACCESS ON LFA PATENT AND INTACT. SKIN CLEAN AND DRY. NO BLEEDING OR DISCHARGE NOTED ON DRESSING OF LOWER EXTREMITIES. ANTIBIOTIC THERAPY CONTINUED. BED IN LOW POSITION. CALL LIGHT WITHIN REACH. SIDE RAILSX2. WILL ENDORSE TO LEAD MAN OVER ALL DIES IN PATTERN SHOPSENIOR STAFF SPECIALIZED EMPLOYMENT FOR CONTINUITY OF CARE.
--- NOTE | 2017-08-02 19:30 | NUR ---
RN OPEN NOTES RECEIVED PATIENT AWAKE IN BED. A/O X3. NO SIGNS OF DISTRESS OR DISCOMFORT. BREATHING EVEN AND UNLABORED. IV ACCESS IN LFA PATENT AND INTACT, NO SIGNS OF REDNESS OR INFILTRATION. BED IN LOW LOCKED POSITION WITH SIDE RAILS X2. CALL LIGHT WITHIN REACH. WILL CONTINUE TO MONITOR.
[2017-08-02 20:00] VITALS: BP 145/76
[2017-08-03] MEDS: PIPERACILLIN /TAZOBACTAM 3.375 G in IV D5W 50 ML IV SCH ×4 (00:15→17:23)
[2017-08-03] MEDS: BLOOD SUGAR DIAGNOSTIC 1 EACH STRIP IN SCH ×3 (06:42→17:22)
[2017-08-03 07:19] LABS: CALCIUM, SERUM 8.6 mg/dL (8.5-10.1); CREATININE 0.8 mg/dL (0.6-1.3)
--- NOTE | 2017-08-03 07:30 | NUR ---
AM RN NOTE Received patient awake, A/O X3 verbally responsive. No SOB noted resp even and non-labored. IV site intact and patent. Bed in low locked position. Will continue to monitor.
--- NOTE | 2017-08-03 07:35 | NUR ---
RN CLOSING NOTES PATIENT AWAKE IN BED. A/O X3. NO SIGNS OF DISTRESS OR DISCOMFORT. BREATHING EVEN AND UNLABORED. IV ACCESS IN LFA PATENT AND INTACT, NO SIGNS OF REDNESS OR INFILTRATION. ALL NEEDS MET. NO SIGNIFICANT CHANGES THROUGH THE NIGHT. BED IN LOW LOCKED POSITION WITH SIDE RAILS X2. CALL LIGHT WITHIN REACH. ENDORSED TO AM SHIFT FOR SUZIE.
[2017-08-03 08:00] VITALS: BP 122/60
[2017-08-03] MEDS: FOLIC ACID 1 MG TABLET PO SCH (08:42)
[2017-08-03] MEDS: ASPIRIN EC 81 MG TABLET.DR PO SCH (08:42)
[2017-08-03] MEDS: METFORMIN 500 MG TABLET PO SCH ×2 (08:42→17:00)
[2017-08-03] MEDS: CALCIUM CARBONATE 500 MG TAB.CHEW PO SCH (08:42)
[2017-08-03] MEDS: FERROUS SULFATE (325 MG) 325 MG/TAB TABLET PO SCH ×2 (08:43→17:20)
[2017-08-03] MEDS: BENAZEPRIL HCL 20 MG TABLET PO SCH (08:43)
[2017-08-03] MEDS: CARVEDILOL 12.5 MG TABLET PO SCH (08:44)
[2017-08-03] MEDS: RIVAROXABAN 15 MG TABLET PO SCH ×2 (08:44→17:22)
[2017-08-03] MEDS: LEVOTHYROXINE SODIUM 100 MCG TABLET PO SCH (08:51)
[2017-08-03] MEDS: VANCOMYCIN 1 GM in IV D5W 250 ML IV SCH (10:53)
--- NOTE | 2017-08-03 15:15 | NUR ---
AM RN NOTE Called Dr. Landaverde (corrosion control specialist) to notify that patient will be discharged today as per Dr. Henao. Per Dr. Landaverde it is ok to remove dressing and take pictures and perform dressing change with Xeroform, Kerlix and ramon wrap. Skin picture taken and dressing done as ordered. Per Dr. Landaverde, pt will see him at wound clinic on coming Wednesday (08/10/17). Daughter (Shirley) made aware about discharge order and will come around 5:30pm to picker operator patient.
[2017-08-03 16:00] VITALS: BP 101/51
--- NOTE | 2017-08-03 17:24 | NUR ---
AM RN NOTE Metformin held due to BS 81 mg/dl. [place] juice given.
--- NOTE | 2017-08-03 18:36 | NUR ---
AM RN NOTE Patient awake, alert and oriented x3 verbally responsive. No acute distress noted. Daughter (Freida) at bedside. Discharge instructions on medications and teachings given to pt and daughter, verbalize understanding. Daughter made aware to call wound clinic to confirm what time is suitable for appt on 08/10/2017. Belongings endorsed and signed by daughter. HL and ID band removed. Skin pictures were placed in chart.
--- NOTE | 2017-08-03 19:00 | NUR ---
AM RN NOTE Patient awake, denies any pain or discomfort at this time. Pt discharged/ left unit at this time as accompanied by 1 FINANCE BUSINESS MANAGER and daughter to downstairs with all her belongings.
== END 2017-08-03 19:00 | disposition home or self-care (01) | DRG 300 ==
LOC: ER 18:02 → MED 22:34
DX: I82.402 Acute embolism and thrombosis of unspecified deep veins of left lower extremity (principal); L03.116 Cellulitis of left lower limb; L97.929 Non-pressure chronic ulcer of unspecified part of left lower leg with unspecified severity; I10 Essential (primary) hypertension; D63.8 Anemia in other chronic diseases classified elsewhere; S81.802A Unspecified open wound, left lower leg, initial encounter; Z85.850 Personal history of malignant neoplasm of thyroid; Z79.01 Long term (current) use of anticoagulants; Z79.82 Long term (current) use of aspirin; Z79.84 Long term (current) use of oral hypoglycemic drugs; E78.5 Hyperlipidemia, unspecified; E11.622 Type 2 diabetes mellitus with other skin ulcer; M19.90 Unspecified osteoarthritis, unspecified site; Z88.6 Allergy status to analgesic agent; E03.9 Hypothyroidism, unspecified
CPT/HCPCS: 36415; 71010-TC; 80048-TC; 80076-TC; 80202-TC; 82962-TC; 84484-TC; 85025-TC; 85730-TC; 87081-TC; 93971-TC; A4606; A6402; A6403; J1650; J1815; J2543; J3370; J7050; J7060; Z7610

== ENCOUNTER 2017-08-10 14:40 | Outpatient (CLI) | payer MEDICARE, MEDICAID | END 2017-08-10 23:59 | disposition home or self-care (01) | LOC: WOU 14:40 | PROVIDERS: ATTEND Podiatrist Foot & Ankle Surgery | DX: I87.2 Venous insufficiency (chronic) (peripheral) (principal); L97.321 Non-pressure chronic ulcer of left ankle limited to breakdown of skin; R60.0 Localized edema; E11.610 Type 2 diabetes mellitus with diabetic neuropathic arthropathy; E11.51 Type 2 diabetes mellitus with diabetic peripheral angiopathy without gangrene; Z79.84 Long term (current) use of oral hypoglycemic drugs; Z86.718 Personal history of other venous thrombosis and embolism; Z79.899 Other long term (current) drug therapy; E66.9 Obesity, unspecified; M21.542 Acquired clubfoot, left foot; Z68.32 Body mass index [BMI] 32.0-32.9, adult | CPT/HCPCS: 11042; 11045; A6253; A6402; A6452 ==

== ENCOUNTER 2017-08-17 09:13 | Outpatient (CLI) | payer MEDICARE, MEDICAID | END 2017-08-17 23:59 | disposition home or self-care (01) | LOC: WOU 09:13 | PROVIDERS: ATTEND Podiatrist Foot & Ankle Surgery | DX: I87.2 Venous insufficiency (chronic) (peripheral) (principal); L97.321 Non-pressure chronic ulcer of left ankle limited to breakdown of skin; R60.0 Localized edema; E11.51 Type 2 diabetes mellitus with diabetic peripheral angiopathy without gangrene; Z79.84 Long term (current) use of oral hypoglycemic drugs; Z86.718 Personal history of other venous thrombosis and embolism; Z79.899 Other long term (current) drug therapy; E66.9 Obesity, unspecified; M21.542 Acquired clubfoot, left foot; Z68.32 Body mass index [BMI] 32.0-32.9, adult | CPT/HCPCS: 11042; 11045; A6253; A6402; A6452 ==

== ENCOUNTER 2017-08-24 10:18 | Outpatient (CLI) | payer MEDICARE, MEDICAID | END 2017-08-24 23:59 | disposition home or self-care (01) | LOC: WOU 10:18 | PROVIDERS: ATTEND Podiatrist Foot & Ankle Surgery | DX: I87.2 Venous insufficiency (chronic) (peripheral) (principal); L97.321 Non-pressure chronic ulcer of left ankle limited to breakdown of skin; R60.0 Localized edema; E11.51 Type 2 diabetes mellitus with diabetic peripheral angiopathy without gangrene; Z79.84 Long term (current) use of oral hypoglycemic drugs; Z86.718 Personal history of other venous thrombosis and embolism; Z79.899 Other long term (current) drug therapy; E66.9 Obesity, unspecified; M21.542 Acquired clubfoot, left foot; Z68.32 Body mass index [BMI] 32.0-32.9, adult | CPT/HCPCS: 11042; 11045; A6253; A6402; A6452 ==

== ENCOUNTER 2017-08-31 10:32 | Outpatient (CLI) | payer MEDICARE, MEDICAID ==
[2017-08-31] MEDS ORDERED: CADEXOMER IODINE 40 GM TUBE TP ONE (12:00)
== END 2017-08-31 23:59 | disposition home or self-care (01) ==
LOC: WOU 10:32
PROVIDERS: ATTEND Podiatrist Foot & Ankle Surgery
DX: I87.2 Venous insufficiency (chronic) (peripheral) (principal); L97.321 Non-pressure chronic ulcer of left ankle limited to breakdown of skin; R60.0 Localized edema; E11.51 Type 2 diabetes mellitus with diabetic peripheral angiopathy without gangrene; Z79.84 Long term (current) use of oral hypoglycemic drugs; Z86.718 Personal history of other venous thrombosis and embolism; Z79.899 Other long term (current) drug therapy; E66.9 Obesity, unspecified; M21.542 Acquired clubfoot, left foot; Z68.32 Body mass index [BMI] 32.0-32.9, adult; M21.172 Varus deformity, not elsewhere classified, left ankle
CPT/HCPCS: 11042; 11045; A6253; A6402; A6452

== ENCOUNTER 2017-09-07 10:10 | Outpatient (CLI) | payer MEDICARE, MEDICAID | END 2017-09-07 23:59 | disposition home or self-care (01) | LOC: WOU 10:10 | PROVIDERS: ATTEND Podiatrist Foot & Ankle Surgery | DX: I87.2 Venous insufficiency (chronic) (peripheral) (principal); L97.321 Non-pressure chronic ulcer of left ankle limited to breakdown of skin; R60.0 Localized edema; E11.51 Type 2 diabetes mellitus with diabetic peripheral angiopathy without gangrene; Z79.84 Long term (current) use of oral hypoglycemic drugs; Z86.718 Personal history of other venous thrombosis and embolism; Z79.899 Other long term (current) drug therapy; E66.9 Obesity, unspecified; M21.542 Acquired clubfoot, left foot; Z68.32 Body mass index [BMI] 32.0-32.9, adult; M21.172 Varus deformity, not elsewhere classified, left ankle | CPT/HCPCS: 11042; 11045; A6253 ×2; A6402; A6452 ==

== ENCOUNTER 2017-09-14 10:31 | Outpatient (CLI) | payer MEDICARE, MEDICAID | END 2017-09-14 23:59 | disposition home or self-care (01) | LOC: WOU 10:31 | PROVIDERS: ATTEND Podiatrist Foot & Ankle Surgery | DX: I87.2 Venous insufficiency (chronic) (peripheral) (principal); L97.321 Non-pressure chronic ulcer of left ankle limited to breakdown of skin; R60.0 Localized edema; E11.51 Type 2 diabetes mellitus with diabetic peripheral angiopathy without gangrene; Z79.84 Long term (current) use of oral hypoglycemic drugs; Z86.718 Personal history of other venous thrombosis and embolism; Z79.899 Other long term (current) drug therapy; E66.9 Obesity, unspecified; M21.542 Acquired clubfoot, left foot; Z68.32 Body mass index [BMI] 32.0-32.9, adult; M21.172 Varus deformity, not elsewhere classified, left ankle; L90.9 Atrophic disorder of skin, unspecified | CPT/HCPCS: 11042; 11045; A6253 ×2; A6402; A6452 ==

== ENCOUNTER 2017-09-21 09:40 | Outpatient (CLI) | payer MEDICARE, MEDICAID | END 2017-09-21 23:59 | disposition home or self-care (01) | LOC: WOU 09:40 | PROVIDERS: ATTEND Podiatrist Foot & Ankle Surgery | DX: I87.2 Venous insufficiency (chronic) (peripheral) (principal); E11.51 Type 2 diabetes mellitus with diabetic peripheral angiopathy without gangrene; Z79.84 Long term (current) use of oral hypoglycemic drugs; Z86.718 Personal history of other venous thrombosis and embolism; Z79.899 Other long term (current) drug therapy; E66.9 Obesity, unspecified; M21.542 Acquired clubfoot, left foot; Z68.32 Body mass index [BMI] 32.0-32.9, adult; M21.172 Varus deformity, not elsewhere classified, left ankle; L90.9 Atrophic disorder of skin, unspecified; L97.322 Non-pressure chronic ulcer of left ankle with fat layer exposed; S91.312A Laceration without foreign body, left foot, initial encounter; X58.XXXA Exposure to other specified factors, initial encounter; Y92.89 Other specified places as the place of occurrence of the external cause | CPT/HCPCS: 11042; A6253; A6402; A6452; G0463 ==

== ENCOUNTER 2017-09-29 09:50 | Outpatient (CLI) | payer MEDICARE, MEDICAID | END 2017-09-29 23:59 | disposition home or self-care (01) | LOC: WOU 09:50 | PROVIDERS: ATTEND Podiatrist Foot & Ankle Surgery | DX: I87.2 Venous insufficiency (chronic) (peripheral) (principal); L97.322 Non-pressure chronic ulcer of left ankle with fat layer exposed; I89.0 Lymphedema, not elsewhere classified; E11.51 Type 2 diabetes mellitus with diabetic peripheral angiopathy without gangrene; Z79.84 Long term (current) use of oral hypoglycemic drugs; Z86.718 Personal history of other venous thrombosis and embolism; Z79.899 Other long term (current) drug therapy; E66.9 Obesity, unspecified; M21.542 Acquired clubfoot, left foot; Z68.32 Body mass index [BMI] 32.0-32.9, adult; M21.172 Varus deformity, not elsewhere classified, left ankle; L90.9 Atrophic disorder of skin, unspecified | CPT/HCPCS: 11042; A6253; A6402; A6452 ==

== ENCOUNTER 2017-10-15 09:40 | Outpatient (CLI) | payer MEDICARE, MEDICAID | END 2017-10-15 23:59 | disposition home or self-care (01) | LOC: WOU 09:40 | PROVIDERS: ATTEND Podiatrist Foot & Ankle Surgery | DX: E11.622 Type 2 diabetes mellitus with other skin ulcer (principal); L97.322 Non-pressure chronic ulcer of left ankle with fat layer exposed; Z79.84 Long term (current) use of oral hypoglycemic drugs; Z79.01 Long term (current) use of anticoagulants; Z86.718 Personal history of other venous thrombosis and embolism; M21.542 Acquired clubfoot, left foot; R60.0 Localized edema; L81.9 Disorder of pigmentation, unspecified; E66.9 Obesity, unspecified; Z68.32 Body mass index [BMI] 32.0-32.9, adult | CPT/HCPCS: 11042; 11045; A6253 ×2; A6402 ×2; A6452 ==

== ENCOUNTER 2017-10-27 09:40 | Outpatient (CLI) | payer MEDICARE, MEDICAID ==
[~2017-10-27 09:40] MED LIST changes: +ASPI-1152 PO; -ASPI-991 PO
== END 2017-10-27 23:59 | disposition home or self-care (01) ==
LOC: WOU 09:40
PROVIDERS: ATTEND Podiatrist Foot & Ankle Surgery
DX: I83.223 Varicose veins of left lower extremity with both ulcer of ankle and inflammation (principal); L97.322 Non-pressure chronic ulcer of left ankle with fat layer exposed; M21.542 Acquired clubfoot, left foot; Z86.718 Personal history of other venous thrombosis and embolism; Z79.01 Long term (current) use of anticoagulants; E11.9 Type 2 diabetes mellitus without complications; Z79.84 Long term (current) use of oral hypoglycemic drugs; E66.9 Obesity, unspecified; Z68.32 Body mass index [BMI] 32.0-32.9, adult; R60.0 Localized edema
CPT/HCPCS: 11042; 11045; A6253; A6402; A6452; J7040

== ENCOUNTER 2017-11-03 10:47 | Outpatient (CLI) | payer MEDICARE, MEDICAID | END 2017-11-03 23:59 | disposition home or self-care (01) | LOC: WOU 10:47 | PROVIDERS: ATTEND Podiatrist Foot & Ankle Surgery | DX: I83.223 Varicose veins of left lower extremity with both ulcer of ankle and inflammation (principal); L97.322 Non-pressure chronic ulcer of left ankle with fat layer exposed; L03.116 Cellulitis of left lower limb; M21.172 Varus deformity, not elsewhere classified, left ankle; I83.892 Varicose veins of left lower extremity with other complications; Z86.718 Personal history of other venous thrombosis and embolism; E11.622 Type 2 diabetes mellitus with other skin ulcer; Z79.01 Long term (current) use of anticoagulants; Z79.52 Long term (current) use of systemic steroids; Z79.84 Long term (current) use of oral hypoglycemic drugs | CPT/HCPCS: 11042; 11045; A6253; A6402; A6452 ==

== ENCOUNTER → 2017-11-19 | Outpatient (CLI) | payer MEDICARE, MEDICAID | END | disposition home or self-care (01) | LOC: WOU 08:56 | PROVIDERS: ATTEND Podiatrist Foot & Ankle Surgery | DX: I87.2 Venous insufficiency (chronic) (peripheral) (principal); L97.322 Non-pressure chronic ulcer of left ankle with fat layer exposed; E11.42 Type 2 diabetes mellitus with diabetic polyneuropathy; I89.0 Lymphedema, not elsewhere classified; M21.542 Acquired clubfoot, left foot; E66.9 Obesity, unspecified; Z68.32 Body mass index [BMI] 32.0-32.9, adult; Z86.718 Personal history of other venous thrombosis and embolism; Z79.84 Long term (current) use of oral hypoglycemic drugs; Z79.01 Long term (current) use of anticoagulants; Z79.52 Long term (current) use of systemic steroids | CPT/HCPCS: A6253 ×2; A6402; A6452; G0463 ==

== ENCOUNTER 2017-11-30 09:51 | Outpatient (CLI) | payer MEDICARE, MEDICAID | END 2017-11-30 23:59 | disposition home or self-care (01) | LOC: WOU 09:51 | PROVIDERS: ATTEND Podiatrist Foot & Ankle Surgery | DX: I87.2 Venous insufficiency (chronic) (peripheral) (principal); L97.322 Non-pressure chronic ulcer of left ankle with fat layer exposed; E11.622 Type 2 diabetes mellitus with other skin ulcer; E11.42 Type 2 diabetes mellitus with diabetic polyneuropathy; M21.542 Acquired clubfoot, left foot; E66.9 Obesity, unspecified; Z68.32 Body mass index [BMI] 32.0-32.9, adult; Z85.810 Personal history of malignant neoplasm of tongue; Z85.01 Personal history of malignant neoplasm of esophagus; Z92.21 Personal history of antineoplastic chemotherapy; Z92.3 Personal history of irradiation; Z86.718 Personal history of other venous thrombosis and embolism; Z79.01 Long term (current) use of anticoagulants; Z79.84 Long term (current) use of oral hypoglycemic drugs | CPT/HCPCS: 11042; 11045; A6253; A6402; A6452 ==

== ENCOUNTER 2017-12-02 13:42 | Outpatient (CLI) | payer MEDICARE, MEDICAID | END 2017-12-02 23:59 | disposition home or self-care (01) | LOC: WOU 13:42 | PROVIDERS: ATTEND Podiatrist Foot & Ankle Surgery | DX: Z86.718 Personal history of other venous thrombosis and embolism (principal) | CPT/HCPCS: 93971-TC ==

== ENCOUNTER 2017-12-15 09:48 | Outpatient (CLI) | payer MEDICARE, MEDICAID | END 2017-12-15 23:59 | disposition home or self-care (01) | LOC: WOU 09:48 | PROVIDERS: ATTEND Specialist | DX: I83.223 Varicose veins of left lower extremity with both ulcer of ankle and inflammation (principal); L97.322 Non-pressure chronic ulcer of left ankle with fat layer exposed; L03.116 Cellulitis of left lower limb; Z85.79 Personal history of other malignant neoplasms of lymphoid, hematopoietic and related tissues; Z92.21 Personal history of antineoplastic chemotherapy; Z92.3 Personal history of irradiation; Z85.810 Personal history of malignant neoplasm of tongue; Z86.718 Personal history of other venous thrombosis and embolism; Z79.01 Long term (current) use of anticoagulants; E11.9 Type 2 diabetes mellitus without complications; Z79.84 Long term (current) use of oral hypoglycemic drugs; M21.542 Acquired clubfoot, left foot; S82.892S Other fracture of left lower leg, sequela; X58.XXXS Exposure to other specified factors, sequela | CPT/HCPCS: 11042; 11045; 87070; A6253; A6402; J7040 ==

== ENCOUNTER 2017-12-21 14:47 | Outpatient (CLI) | payer MEDICARE, MEDICAID ==
[2017-12-21 16:21] LABS: BASOPHILS # (AUTO) 0.1 /CMM (0.0-0.2); BASOPHILS % (AUTO) 0.7 % (0.0-2.0); EOSINOPHILS # (AUTO) 0.3 /CMM (0.0-0.7); EOSINOPHILS % (AUTO) 3.1 % (0.0-6.0); HEMATOCRIT 32 % (33-45); HEMOGLOBIN 10.4 g/dL (11.5-14.8); MEAN CORPUSCULAR HEMOGLOBIN 28 PG (26.0-33.0); MEAN CORPUSCULAR HGB CONC 33 g/dl (31.0-36.0); MEAN CORPUSCULAR VOLUME 83 fL (82-100); MONOCYTES # (AUTO) 0.8 /CMM (0.1-1.30); MONOCYTES % (AUTO) 8.9 % (2.0-12.0); NEUTROPHILS % (AUTO) 65.3 % (43.0-81.0); PLATELET COUNT (AUTO) 419 /CMM (150-450); RDW COEFFICIENT OF VARIATION 15.3 (11.5-15.0); RED BLOOD CELL COUNT(AUTO) 3.79 MIL/uL (4.0-5.2); WHITE BLOOD COUNT (AUTO) 9.2 K/uL (4.3-11.0)
[2017-12-21 16:33] LABS: ALBUMIN 2.5 g/dL (3.4-5.0)
[2017-12-21 16:35] LABS: PREALBUMIN 13.7 MG/DL (18.0-35.7)
[2017-12-21 17:30] LABS: C-REACTIVE PROTEIN 9.1 mg/dL (0.0-0.9)
[2017-12-22 18:10] LABS: *ANA ANTI-CENTROMERE B AB <0.2 AI (0.0-0.9); *ANA ANTI-DNA(DS) AB, QN 2 IU/mL (0-9); *ANA ANTI-JO-1 <0.2 AI (0.0-0.9); *ANA ANTICHROMATIN ANTIBODY <0.2 AI (0.0-0.9); *ANA RNP ANTIBODIES 0.4 AI (0.0-0.9); *ANA SJOGREN'S ANTI-SS-A <0.2 AI (0.0-0.9); *ANA SJOGREN'S ANTI-SS-B <0.2 AI (0.0-0.9); *ANAANTI-SCLERODERMA-70 AB <0.2 AI (0.0-0.9); *ANASMITH AB <0.2 AI (0.0-0.9)
[2017-12-23 13:18] LABS: *ANCANTIMYELOPEROXIDASE (MPO) <9.0 U/mL (0.0-9.0); *ANCANTIPROTEINASE 3 (PR-3) AB <3.5 U/mL (0.0-3.5)
[2017-12-23 14:20] LABS: *ANCA ATYPICAL p-ANCA <1:20 titer (Neg:<1:20); *ANCA CYTOPLASMIC (C-ANCA) <1:20 titer (Neg:<1:20); *ANCA PERINUCLEAR (P-ANCA) <1:20 titer (Neg:<1:20)
== END 2017-12-21 23:59 | disposition home or self-care (01) ==
LOC: LAB 14:47
PROVIDERS: ATTEND Specialist
DX: T14.8XXD Other injury of unspecified body region, subsequent encounter (principal); X58.XXXD Exposure to other specified factors, subsequent encounter
CPT/HCPCS: 36415; 82040-TC; 82595; 83520; 84134-TC; 85025-TC; 85652-TC; 86140-TC; 86225; 86235; 86256; 86431-TC

== ENCOUNTER 2018-01-05 09:45 | Outpatient (CLI) | payer MEDICARE, MEDICAID | END 2018-01-05 23:59 | disposition home or self-care (01) | LOC: WOU 09:45 | PROVIDERS: ATTEND Podiatrist Foot & Ankle Surgery | DX: I87.2 Venous insufficiency (chronic) (peripheral) (principal); E11.621 Type 2 diabetes mellitus with foot ulcer; L97.322 Non-pressure chronic ulcer of left ankle with fat layer exposed; L97.822 Non-pressure chronic ulcer of other part of left lower leg with fat layer exposed; L97.512 Non-pressure chronic ulcer of other part of right foot with fat layer exposed; I89.0 Lymphedema, not elsewhere classified; Z92.21 Personal history of antineoplastic chemotherapy; M21.172 Varus deformity, not elsewhere classified, left ankle; M21.171 Varus deformity, not elsewhere classified, right ankle; Z86.718 Personal history of other venous thrombosis and embolism; Z79.01 Long term (current) use of anticoagulants; Z79.52 Long term (current) use of systemic steroids; Z79.84 Long term (current) use of oral hypoglycemic drugs; E66.9 Obesity, unspecified; Z68.33 Body mass index [BMI] 33.0-33.9, adult | CPT/HCPCS: 11042; A6209; A6253; A6402 ==

== ENCOUNTER 2018-01-12 09:20 | Outpatient (CLI) | payer MEDICARE, MEDICAID | END 2018-01-12 23:59 | disposition home or self-care (01) | LOC: WOU 09:20 | PROVIDERS: ATTEND Podiatrist Foot & Ankle Surgery | DX: I87.2 Venous insufficiency (chronic) (peripheral) (principal); L97.322 Non-pressure chronic ulcer of left ankle with fat layer exposed; E11.59 Type 2 diabetes mellitus with other circulatory complications; M21.172 Varus deformity, not elsewhere classified, left ankle; Z86.718 Personal history of other venous thrombosis and embolism; R60.0 Localized edema; Z79.01 Long term (current) use of anticoagulants; Z79.52 Long term (current) use of systemic steroids; Z79.84 Long term (current) use of oral hypoglycemic drugs | CPT/HCPCS: 11042; 11045; A6402 ==

== ENCOUNTER 2018-01-26 10:06 | Outpatient (CLI) | payer MEDICARE, MEDICAID | END 2018-01-26 23:59 | disposition home or self-care (01) | LOC: WOU 10:06 | PROVIDERS: ATTEND Podiatrist Foot & Ankle Surgery | DX: I87.332 Chronic venous hypertension (idiopathic) with ulcer and inflammation of left lower extremity (principal); L97.322 Non-pressure chronic ulcer of left ankle with fat layer exposed; M21.172 Varus deformity, not elsewhere classified, left ankle; L03.116 Cellulitis of left lower limb; E66.9 Obesity, unspecified; Z68.33 Body mass index [BMI] 33.0-33.9, adult; Z71.3 Dietary counseling and surveillance; E11.622 Type 2 diabetes mellitus with other skin ulcer; Z86.718 Personal history of other venous thrombosis and embolism; Z79.01 Long term (current) use of anticoagulants; Z79.84 Long term (current) use of oral hypoglycemic drugs | CPT/HCPCS: 11042; 11045; 87070-TC; 87186-TC; A6253; A6402 ==

== ENCOUNTER 2018-02-08 10:51 | Outpatient (CLI) | payer MEDICARE, MEDICAID ==
[~2018-02-08 10:51] MED LIST changes: -BENA20TA2 PO; +BENA20TA9 PO; +METF-442 PO; -METF10002 PO
== END 2018-02-08 23:59 | disposition home or self-care (01) ==
LOC: WOU 10:51
PROVIDERS: ATTEND Podiatrist Foot & Ankle Surgery
DX: I87.2 Venous insufficiency (chronic) (peripheral) (principal); L97.322 Non-pressure chronic ulcer of left ankle with fat layer exposed; M21.172 Varus deformity, not elsewhere classified, left ankle; L03.116 Cellulitis of left lower limb; R60.0 Localized edema; E66.9 Obesity, unspecified; Z68.33 Body mass index [BMI] 33.0-33.9, adult; Z86.718 Personal history of other venous thrombosis and embolism; Z85.72 Personal history of non-Hodgkin lymphomas; Z92.3 Personal history of irradiation; M21.542 Acquired clubfoot, left foot; Z92.21 Personal history of antineoplastic chemotherapy; E11.9 Type 2 diabetes mellitus without complications; Z79.01 Long term (current) use of anticoagulants; Z79.4 Long term (current) use of insulin; Z79.52 Long term (current) use of systemic steroids
CPT/HCPCS: 11042; 11045; 87070; 87077; 87186 ×2; A6253; A6402; 11044; 11047

== ENCOUNTER 2018-02-15 10:50 | Outpatient (CLI) | payer MEDICARE, MEDICAID | END 2018-02-15 23:59 | disposition home or self-care (01) | LOC: WOU 10:50 | PROVIDERS: ATTEND Podiatrist Foot & Ankle Surgery | DX: I87.2 Venous insufficiency (chronic) (peripheral) (principal); L97.322 Non-pressure chronic ulcer of left ankle with fat layer exposed; L03.116 Cellulitis of left lower limb; B96.89 Other specified bacterial agents as the cause of diseases classified elsewhere; E11.8 Type 2 diabetes mellitus with unspecified complications; Z79.84 Long term (current) use of oral hypoglycemic drugs; E66.9 Obesity, unspecified; Z68.33 Body mass index [BMI] 33.0-33.9, adult; Z86.718 Personal history of other venous thrombosis and embolism; Z79.01 Long term (current) use of anticoagulants; Z79.899 Other long term (current) drug therapy | CPT/HCPCS: 11042; 11045; 87070-TC; 87075-TC; 87186-TC; A6253; A6402 ==

== ENCOUNTER 2018-02-22 11:00 | Outpatient (CLI) | payer MEDICARE, MEDICAID ==
[~2018-02-22 11:00] MED LIST changes: +BENA20TA2 PO; -BENA20TA9 PO; -METF-442 PO; +METF10002 PO
== END 2018-02-22 23:59 | disposition home or self-care (01) ==
LOC: WOU 11:00
PROVIDERS: ATTEND Podiatrist Foot & Ankle Surgery
DX: I87.2 Venous insufficiency (chronic) (peripheral) (principal); L97.322 Non-pressure chronic ulcer of left ankle with fat layer exposed; L03.116 Cellulitis of left lower limb; B95.2 Enterococcus as the cause of diseases classified elsewhere; M21.172 Varus deformity, not elsewhere classified, left ankle; E11.9 Type 2 diabetes mellitus without complications; Z79.84 Long term (current) use of oral hypoglycemic drugs; E66.9 Obesity, unspecified; Z68.33 Body mass index [BMI] 33.0-33.9, adult
CPT/HCPCS: 11042; 11045; A6253; A6402; A6452

== ENCOUNTER 2018-03-08 09:30 | Outpatient (CLI) | payer MEDICARE, MEDICAID ==
[~2018-03-08 09:30] MED LIST changes: -BENA20TA2 PO; +BENA20TA9 PO; +METF-442 PO; -METF10002 PO
== END 2018-03-08 23:59 | disposition home or self-care (01) ==
LOC: WOU 09:30
PROVIDERS: ATTEND Podiatrist Foot & Ankle Surgery
DX: I87.312 Chronic venous hypertension (idiopathic) with ulcer of left lower extremity (principal); L97.322 Non-pressure chronic ulcer of left ankle with fat layer exposed; E66.9 Obesity, unspecified; Z68.33 Body mass index [BMI] 33.0-33.9, adult; Z86.718 Personal history of other venous thrombosis and embolism; E11.9 Type 2 diabetes mellitus without complications; M21.542 Acquired clubfoot, left foot; M21.172 Varus deformity, not elsewhere classified, left ankle; S82.892S Other fracture of left lower leg, sequela; X58.XXXS Exposure to other specified factors, sequela; Z79.01 Long term (current) use of anticoagulants; Z79.84 Long term (current) use of oral hypoglycemic drugs
CPT/HCPCS: 11042; 11045; A6253; A6402; A6452

== ENCOUNTER 2018-03-23 09:58 | Outpatient (CLI) | payer MEDICARE, MEDICAID | END 2018-03-23 23:59 | disposition home or self-care (01) | LOC: WOU 09:58 | PROVIDERS: ATTEND Podiatrist Foot & Ankle Surgery | DX: I83.023 Varicose veins of left lower extremity with ulcer of ankle (principal); L97.322 Non-pressure chronic ulcer of left ankle with fat layer exposed; R60.0 Localized edema; M21.542 Acquired clubfoot, left foot; E66.9 Obesity, unspecified; Z68.33 Body mass index [BMI] 33.0-33.9, adult; Z86.718 Personal history of other venous thrombosis and embolism; Z79.01 Long term (current) use of anticoagulants; Z79.84 Long term (current) use of oral hypoglycemic drugs | CPT/HCPCS: 11042; 11045; A6402; A6452; J7040 ==

== ENCOUNTER 2018-04-08 08:50 | Outpatient (CLI) | payer MEDICARE, MEDICAID | END 2018-04-08 23:59 | disposition home or self-care (01) | LOC: WOU 08:50 | PROVIDERS: ATTEND Podiatrist Foot & Ankle Surgery | DX: I87.2 Venous insufficiency (chronic) (peripheral) (principal); L97.322 Non-pressure chronic ulcer of left ankle with fat layer exposed; Z86.718 Personal history of other venous thrombosis and embolism; Z79.01 Long term (current) use of anticoagulants; E11.59 Type 2 diabetes mellitus with other circulatory complications; R60.0 Localized edema; Z92.3 Personal history of irradiation; Z85.79 Personal history of other malignant neoplasms of lymphoid, hematopoietic and related tissues; E66.9 Obesity, unspecified; Z68.33 Body mass index [BMI] 33.0-33.9, adult; M21.542 Acquired clubfoot, left foot; M21.172 Varus deformity, not elsewhere classified, left ankle; S82.892S Other fracture of left lower leg, sequela; X58.XXXS Exposure to other specified factors, sequela; Z92.21 Personal history of antineoplastic chemotherapy | CPT/HCPCS: 11042; 11045; A6253; A6402; A6452; J7040 ==

== ENCOUNTER 2018-04-26 09:38 | Outpatient (CLI) | payer MEDICARE, MEDICAID | END 2018-04-26 23:59 | disposition home or self-care (01) | LOC: WOU 09:38 | PROVIDERS: ATTEND Podiatrist Foot & Ankle Surgery | DX: I87.2 Venous insufficiency (chronic) (peripheral) (principal); L97.322 Non-pressure chronic ulcer of left ankle with fat layer exposed; M21.172 Varus deformity, not elsewhere classified, left ankle; Z86.718 Personal history of other venous thrombosis and embolism; E66.9 Obesity, unspecified; Z68.33 Body mass index [BMI] 33.0-33.9, adult; M21.542 Acquired clubfoot, left foot; S82.892S Other fracture of left lower leg, sequela; X58.XXXS Exposure to other specified factors, sequela | CPT/HCPCS: 11042; 11045; A6253 ×2; A6402; A6452; Z7610 ==

== ENCOUNTER 2018-06-14 08:55 | Outpatient (CLI) | payer MEDICARE, MEDICAID ==
[~2018-06-14 08:55] MED LIST changes: -METF-442 PO; +METF10004 PO
== END 2018-06-14 23:59 | disposition home or self-care (01) ==
LOC: WOU 08:55
PROVIDERS: ATTEND Podiatrist Foot & Ankle Surgery
DX: I87.312 Chronic venous hypertension (idiopathic) with ulcer of left lower extremity (principal); L97.322 Non-pressure chronic ulcer of left ankle with fat layer exposed; E11.621 Type 2 diabetes mellitus with foot ulcer; Z79.84 Long term (current) use of oral hypoglycemic drugs; R26.9 Unspecified abnormalities of gait and mobility; I10 Essential (primary) hypertension
CPT/HCPCS: 11042; 11045; A6253; A6402; A6452; Z7610